=== PATIENT | male | born 1985 | race Caucasian/White ===

== ENCOUNTER 2022-09-24 08:48 | Emergency (ER) | payer OTHER, SELFPAY ==
[2022-09-24 08:49] VITALS: BP 150/94; PULSE 88; RESP 16; TEMP 36.6; O2SAT 100; BMI 22.5
[2022-09-24 08:57] VITALS: BP 150/100; PULSE 66; RESP 20; O2SAT 99
--- NOTE | 2022-09-24 09:29 | EKG12_ITS ---
Test Reason : HTN Blood Pressure : / mmHG Vent. Rate : 066 BPM Atrial Rate : 066 BPM P-R Int : 150 ms QRS Dur : 084 ms QT Int : 374 ms P-R-T Axes : 080 081 064 degrees QTc Int : 392 ms Normal sinus rhythm ST elevation, consider early repolarization Borderline ECG Confirmed by GINA HOUSTON, MATTEO ([id number]), editorial manager FITZ ROSENTHAL ([id number]) on 09/30/2022 9:24:55 A M Referred By: Confirmed By:ROCK FUENTES MD
--- NOTE | 2022-09-24 09:30 | EDS_ITS ---
HPI History of Present Illness Chief Complaint: Hypertension Informant: patient Narrative Narrative: 37-year-old male presenting to the emergency room with hypertension. Patient states that he has noticed over the past year plus he has episodes of throbbing headache and neck pain. During these periods he knows that his blood pressure is elevated. Sometimes his blood pressure is elevated into the greater than 200 systolic range measured by a wrist cuff.. 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 He notes no change in exercise tolerance. He states that he has not experienced any chest pain. He states occasionally he will feel a fluttering in his chest but it is only lasting seconds. His PCP has retired and he has an appointment the end of the month. However his symptoms have progressively worsened and so he decided to seek care today. PFSH PFSH Medical History no medical history Allergy/AdvReac Type Severity Reaction Status Date / Time No Known Allergies Allergy Verified 09/24/22 08:51 Social History (Updated 09/24/22 @ 09:[address] Isaac Stevenson, DO) current gender identity: male Smoking Status: Never smoker ROS ROS ED Constitutional Constitutional ED: Denies chills or weight loss Eyes Eyes: Denies change in vision or diplopia ENT ENT ED: Denies ear pain, rhinorrhea or sore throat Cardiovascular Cardiovascular: Reports palpitations; Denies chest pain, orthopnea or racing heartbeat Respiratory/Chest Respiratory/Chest: Denies cough, dyspnea or orthopnea Gastrointestinal Gastrointestinal: Denies abdominal pain, diarrhea, nausea or vomiting Genitourinary Genitourinary ED: Denies dysuria, hematuria or urinary frequency Musculoskeletal Musculoskeletal: Reports neck pain; Denies arthralgias or myalgias Integumentary Denies abscess or rash Neurologic Neurologic: Reports headache(s); Denies weakness Psychiatric Psychiatric: Denies anxiety, depression, suicidal ideation or suicidal thoughts Endocrine Endocrinology: Denies polydipsia, polyphagia or polyuria Allergic/Immunologic Allergic/Immunologic ED: Denies mouth swelling, tongue swelling or urticaria EXAM Physical Exam Const Vital Signs: 09/24/22 08:49 09/24/22 08:55 09/24/22 08:57 Temperature 97.8 F Temperature Source Temporal Pulse Rate 88 66 Respiratory Rate 16 20 H Respiratory Effort Normal Respiratory Pattern Normal Blood Pressure 150/94 H 150/100 H Blood Pressure Mean 112 116 Pulse Ox 100 99 Oxygen Delivery Method Room Air Room Air 09/24/22 11:00 Temperature Temperature Source Pulse Rate 72 Respiratory Rate Respiratory Effort Respiratory Pattern Blood Pressure 130/86 H Blood Pressure Mean 100 Pulse Ox Oxygen Delivery Method Positive well nourished and well developed General Appearance ED: well developed HEENT Reports normocephalic, head/scalp atraumatic and moist mucous membranes Eyes PERRL and EOMs intact bilaterally Neck no lymphadenopathy, supple and no JVD Resp normal respiratory effort and clear to auscultation bilaterally Cardio regular rate, regular rhythm and no murmurs GI normal to inspection, nondistended, normoactive bowel sounds and non-tender Palpation: soft Back/Spine no CVA tenderness and normal ROM Extremity normal to inspection General Extremety ED: Negative for edema General Extremity: Negative for edema Neuro oriented x3 and CN's II-XII intact bilaterally Sensorium / Orientation: alert Motor Exam: strength 5/5 throughout Psych mental status grossly normal Mood & Affect: Negative for depressed or tearful Skin no rashes or lesions noted and no wounds MDM MDM MDM Narrative Medical decision making narrative: My interpretation of the chest x-ray is normal mediastinal silhouette. Basic blood work is negative. EKG is normal. Patient is a 37-year-old male with intermittent hypertension above 200. We will start him on low-dose amlodipine. I would recommend that he continue to monitor his blood pressure and take it to his doctor's office on the when he has a follow-up appointment. The patient and his are in agreement with this plan. Lab Data Attestation: I reviewed the patient's lab results. Labs: Laboratory Results - last 24 hr 09/24/22 09/24/22 10:00 10:00 WBC 4.7 RBC 4.96 Hgb 15.4 Hct 44.0 MCV 88.7 MCH 31.0 MCHC 35.0 RDW Std Deviation 40.5 RDW Coeff of Gil 12.5 Plt Count 254 MPV 9.6 Immature Gran % (Auto) 0.200 Neut % (Auto) 55.2 Lymph % (Auto) 30.4 [place] % (Auto) 10.6 H Eos % (Auto) 2.3 Baso % (Auto) 1.3 H Absolute Neuts (auto) 2.6 Absolute Lymphs (auto) 1.43 Nucleated RBC % 0 Sodium 140 Potassium 4.3 Chloride 107 Carbon Dioxide 29.0 Anion Gap 4 L BUN 12 Creatinine 0.95 Estim Creat Clear Calc 122.95 Est GFR (MDRD) Af Amer 115 Est GFR (MDRD) Non-Af 95 BUN/Creatinine Ratio 12.7 Glucose 88 Calcium 9.3 Total Bilirubin 0.90 AST 15 ALT 24 Alkaline Phosphatase 96 Total Protein 7.0 Albumin 4.1 Globulin 2.9 Albumin/Globulin Ratio 1.4 Radiography Diagnostic Testing: Clinical Impression(s) from Imaging Studies Chest X-Ray 09/24/22 10:15 IMPRESSION: Normal x-ray examination of the chest. Electronically Signed: Js Hendricks MD at 10:35 EST , EKG Initial EKG: Attestation: I personally reviewed and interpreted this EKG as follows: Comments: Normal sinus rhythm with a ventricular rate of 66 bpm. No concerning features of ACS noted. Discharge Plan Triage Chief Complaint: Hypertension ED Provider: Isaac Stevenson Dx/Rx/DC Orders Primary Care Provider: Care Physician,No Primary Referrals: Care Physician,No Primary [Primary Care Provider] -
--- NOTE | 2022-09-24 09:40 | NURSING ---
NO OLD EKGS
[2022-09-24 10:06] LABS: Absolute Lymphocyte Count 1.43 X10^3/uL (0.83-4.51); Absolute Neutrophil Count 2.6 X10^3/uL (2.0-7.7); Basophil# 0.06 X10^3/uL; Basophil% 1.3 % (0-1); Eosinophil# 0.11 X10^3/uL; Eosinophils% 2.3 % (0-5); Hemoglobin 15.4 g/dL (13.0-16.5); Lymphocyte # 1.43 X10^3/ul (0.83-4.51); Lymphocyte % 30.4 % (19-41); Mean Corpuscular Volume 88.7 fL (80-94); Mean Platelet Vol. 9.6 fl (6.2-12.0); Monocyte% 10.6 % (0-10); NRBC Flagged by Analyzer 0 % (0-5); Neutrophil % 55.2 % (47-70); Platelet Count 254 K/mm3 (150-450); RBC Distribution Width CV 12.5 % (11.6-14.6); RBC Distribution Width SD 40.5 fl (35.1-43.9); Red Blood Count 4.96 M/mm3 (4.6-6.2); White Blood Count 4.7 K/mm3 (4.4-11.0)
--- NOTE | 2022-09-24 10:15 | RAD_ITS ---
STUDY: X-RAY CHEST REASON FOR EXAM: Male, 37 years old. Hypertension TECHNIQUE: Single AP portable view of the chest. COMPARISON: None. FINDINGS: EKG electrodes are seen. The lungs are clear and expanded. There is no demonstrated pleural abnormality. Normal size heart. Normal mediastinum and kenji. Normal visualized pulmonary arteries. Normal visualized aortic arch and descending thoracic aorta. Normal visualized thoracic spine. Normal visualized ribs, clavicles, and shoulders. There is no demonstrated abnormality of the visualized soft tissue structures of the upper abdomen. RAD/Chest 1 View (Portable) IMPRESSION: Normal x-ray examination of the chest. Electronically Signed: Js Hendricks MD at 10:35 EST ,
[2022-09-24 10:22] LABS: ALB/GLOB Ratio 1.4 RATIO (0.9-2.4); AST(SGOT) 15 U/L (15-37); Alanine Aminotransfer ALT/SGPT 24 U/L (16-61); Albumin, Serum 4.1 g/dL (3.2-5.0); Alkaline Phosphatase 96 U/L (45-117); Anion Gap 4 (5-15); BUN 12 mg/dL (7-18); BUN/Creat Ratio 12.7 RATIO (10-20); Calcium,Total 9.3 mg/dL (8.5-10.1); Chloride 107 mmol/L (98-107); Creatinine, Serum 0.95 mg/dL (0.70-1.30); EST Glomerular Filtration Rate 95 mL/min (>60); Est Glom Filt Rate - Afr Amer 115 mL/min (>60); Estimated Creatinine Clearance 122.95 ml/min; Globulin 2.9 g/dL (2.2-4.2); Glucose 88 mg/dL (74-106); Potassium 4.3 mmol/L (3.5-5.1); Sodium Level 140 mmol/L (136-145)
[2022-09-24 11:00] VITALS: BP 130/86; PULSE 72
== END 2022-09-24 11:23 | disposition home or self-care (01) ==
PROVIDERS: Emergency Provider Emergency Medicine; Visit Provider Emergency Medicine
DX: I10 Essential (primary) hypertension (principal); R51.9 Headache, unspecified; R00.2 Palpitations; M54.2 Cervicalgia
CPT/HCPCS: 71045; 80053; 85025; 93005; 99285; A4216

== ENCOUNTER 2024-04-13 13:06 | Outpatient (RCR) | payer OTHER, SELFPAY ==
[2024-04-13 13:11] VITALS: BP 103/67; PULSE 65; RESP 16; BMI 22.6
--- NOTE | 2024-04-13 14:33 | PCM.WC.HP ---
History of Present Illness Date of Service: 04/13/24 Chief Complaint: Right abdomen wound after surgery History of Wound: 38 year old male presents with right lateral abdomen wound after surgery 03/15/24 for Pheochromocytoma at [facility] by Dr. Toure. He developed a seroma after surgery, ended admitted to [place] and then transferred to [facility] [place] where they took him back to surgery to evacuate the seroma. He was discharged home a week ago on Doxycycline antibiotics, with home health to help with his saline wet to dry dressings. Home health recommended he come into the wound center. Patient states that he does not have a follow up with the surgeon. History of high blood pressure and cardiac issues which were related to his Pheochromocytoma. He had been having elevated blood pressure episodes periodically for about 2 years. In January 2024, his symptoms worsened along with chest pain and heart arrhythmias. That was when the mass was an incidental finding on chest imaging. Today he denies fever, chills, nausea or vomiting. Progress of Wound: Right lateral abdomen wound on the incision that has non viable tissue in the base. Sutures are visible. There is tunneling at 2 o'clock. [facility] Medical History Pheochromocytoma of right adrenal gland Home Medications ?Medication ?Instructions ?Recorded ?Last Taken ?Type doxycycline hyclate 100 mg capsule 100 mg PO BID 04/13/24 Unknown History tramadol 50 mg tablet 50 mg PO Q6H PRN PRN pain 04/13/24 Unknown History Allergy/AdvReac Type Severity Reaction Status Date / Time No Known Allergies Allergy Verified 04/13/24 13:25 Social History Smoking Status: Never smoker ROS Constitutional Constitutional: Denies chills or fever(s) Eyes Eyes: Reports none ENT HEENT: Reports none Cardiovascular Cardiovascular: Denies chest pain or dyspnea Respiratory/Chest Respiratory/Chest: Reports none Gastrointestinal Gastrointestinal: Denies diarrhea, nausea or vomiting Genitourinary Genitourinary: Reports none Musculoskeletal Musculoskeletal: Denies extremity pain, joint pain or joint stiffness Integumentary Integumentary: Reports wounds Neurologic Neurologic: Reports none Psychiatric Psychiatric: Reports none Endocrine Endocrinology: Reports none Allergic/Immunologic Allergic/Immunologic: Reports none Vital Signs Vital Signs Vital Signs: 04/13/24 13:11 Pulse Rate 65 Respiratory Rate 16 Blood Pressure 103/67 Blood Pressure Mean 79 Blood Pressure Source Monitor Blood Pressure Position Sitting Blood Pressure Location Right Arm Oxygen Delivery Method Room Air Weight Weight: 175 lb 12.943 oz Body Mass Index (BMI) 22.6 Physical Exam Const alert, oriented x3, no apparent distress and average body habitus HEENT normocephalic Head and Scalp: atraumatic Eyes General Eye: normal appearance of both eyes Neck full ROM Lymph Lymphatic: no lymphedema noted Resp normal respiratory effort, normal air movement and clear to auscultation bilaterally Effort and Inspection: able to speak in complete sentences Cardio regular rate and regular rhythm GI normal to inspection, nondistended, normoactive bowel sounds and soft to palpation Back/Spine normal ROM Extremity normal to inspection, full ROM and normal capillary refill Skin Wound Narrative: Right lateral abdomen wound on the incision that has non viable tissue in the base. Two sutures are visible in the base of the ulcer. There is tunneling at 2 o'clock. Neuro oriented x3 Psych mental status grossly normal, thought process normal and cooperative Appearance: grossly normal Debridement Note Debridement Note No debridement was completed: No debridement was completed today Post-Debridement Measurements and Additional Note: Post-Debridement Measurements/Treatment - Nurse 1 - General Ulcer Assessment Start: 04/13/24 13:11 Freq: Status: Active Protocol: REHANA Activity Type Activity Date Activity User E-sign Co-sign Detail Recorded Client Recorded Date Recorded By Document 04/13/24 13:11 [facility] [id number] 04/13/24 13:22 [facility] 04/13/24 13:11 - Today's Visit Information Type of service Initial Visit Arrival Mode Ambulatory Transfer Assistance None Accompanied by Patient Identification Verified (Name & Yes ) Patient Requires Transmission-Based No Precautions Height and Weight Height 6 ft 2 in Weight 175 lb 12.943 oz Weight in Pounds 175.8 lbs Body Mass Index (BMI) 22.6 BMI Classification Normal BSA - [place] 2.06 Vital Signs Pulse Rate (60-100) 65 Pulse Location Monitor Respiratory Rate (12-18) 16 Respiratory rate source Observation Oxygen Delivery Method Room Air Blood Pressure (90/60-120/80) 103/67 Blood Pressure Mean 79 Source Monitor Position Sitting Blood Pressure Location Right Arm History Since Last Visit- (Skip if this is Patient's initial visit) Left Footwear Regular Shoe Right Footwear Regular Shoe Pain Scale: 0-10 Numeric Is Patient Pain Free? Yes Communication Assessment Preferred language [place] Scissors Sharpener Required No Able to Read Yes Able to Write Yes Communication Tools None Right Hearing Abillity Normal Left Hearing Abillity Normal Visual Assistive Devices None Culture/Roman Catholic/Door Fitter Cultural/Roman Catholic Needs that may affect No Treatment Plan Teaching: Wound Center Dressing Your Wound -Person Taught Patient, Significant Other -Teaching Method Discussion -Response to teaching Verbalize understanding *Welcome to the Wound Center -Person Taught Patient, Significant Other -Teaching Method Discussion -Response to teaching Verbalize understanding *Wound/Skin Impairment -Person Taught Patient, Significant Other -Teaching Method Discussion -Response to teaching Verbalize understanding *Debridement -Person Taught Patient, Significant Other -Teaching Method Discussion -Response to teaching Verbalize understanding Welcome to the Wound Care Center English RANGEL - Nurse 1 - General Ulcer Measurement Start: 04/13/24 13:11 Freq: Status: Active Protocol: Activity Type Activity Date Activity User E-sign Co-sign Detail Recorded Client Recorded Date Recorded By Document 04/13/24 13:11 [facility] [id number] 04/13/24 13:22 [facility] 04/13/24 13:11 Wound Center Nurse 1 #1- R ABDOMEN -Combined with other wound No -Current Size (cm) - Length 1.7 -Current Size (cm) - Width 6.5 -Current Size (cm) - Depth 2.5 -Total Square Cm 11.05 -Date of Last Picture (Recall this 04/13/24 field) -Photo Taken Yes -Tunneling No -Undermining/Tunneling No -Undermining/Tunneling Starts (O'clock 2 ) -Undermining/Tunneling Ends (O'clock) 10 -Maximum Distance (cm) 9.3 -Circular Undermining No -Exudate Amt Large -Exudate Type Serosanguineous -Wound Margin Distinct, Outline Attached -Granulation Amt Small (1-33%) -Granulation Quality Red -Slough/Fibrin Yes -Necrosis Amt Large (67-100%) -Necrotic Tissue Type Adherent Slough -Texture (Luzma-wound Skin Appearance) Assessed, Scarring -Moisture (Luzma-wound Skin Appearance) Assessed -Color (Luzma-wound Skin Appearance) Assessed -Temperature (Luzma-wound Skin No Abnormality Appearance) (Pt Warm) -Tenderness on Palpation (Luzma-wound No Skin Appearance) -Ulcer Cleansing Soap and Water -Foul Odor after Cleansing No -Anesthetic Used 4% Lidocaine Solution - Nurse 2 - General Ulcer CM Notes Start: 04/13/24 13:11 Freq: Status: Active Protocol: Activity Type Activity Date Activity User E-sign Co-sign Detail Recorded Client Recorded Date Recorded By Document 04/13/24 13:40 GM 04/13/24 13:54 GM 04/13/24 13:40 Wound Center Nurse 2 -Time 13:41 -Correct Patient Yes -Correct Side, Site, Position Yes -Tunneling No -Undermining/Tunneling No -Circular Undermining No -Wound/Ulcer Outcome Not Healed -Ulcer Cleansing Rinsed/ Irrigated with Saline -Foul Odor after Cleansing No -Bioengineered Tissue No -Bleeding Controlled with Pressure -Treatment Response Procedure Tolerated Well -Wound Comment(s) WOUND MEASUREMENT 1. 6X6.5X2.6 Pain Scale: 0-10 Numeric Is Patient Pain Free? Yes - Nurse 3 - General Ulcer D/C NN Start: 04/13/24 13:11 Freq: Status: Active Protocol: Activity Type Activity Date Activity User E-sign Co-sign Detail Recorded Client Recorded Date Recorded By Document 04/13/24 14:08 [facility] [id number] 04/13/24 14:09 [facility] 04/13/24 14:08 Wound Care Center Nurse 3 #1- R ABDOMEN -Ulcer Cleansing Rinsed/ Irrigated with Saline -Foul Odor after Cleansing No -Primary Dressing Applied Hysept ($) -Other Dressing ABD -Primary Dressing Covered/Secured with Secured with Tape Treatment Response Procedure Tolerated Well Pain Scale: 0-10 Numeric Is Patient Pain Free? Yes - Visit Discharge Discharge Condition Stable Ambulatory Status Ambulatory Transportation Private Auto Accompanied by Facility Type Home Health Charges/Coding Visit Charges Office Visits / Consults: [id number] OV L4 Est 30min Assessment/Plan Assessment/Plan (1) Non-healing surgical wound: CODE(S): T81.89XA - Other complications of procedures, not elsewhere classified, initial encounter (2) Pheochromocytoma of right adrenal gland: CODE(S): D35.01 - Benign neoplasm of right adrenal gland PLAN: Plan Patient evaluated at the wound healing center. No debridement done today with the sutures visible in the base of the wound. Will do conservative treatment. Wound care - Dakin's 0.25% moistened gauze covered with ABD daily and prn. May wash the area with soap and water daily. He has home health to assist with the dressing changes and his is an RN who also is able to assist him with his dressing changes. He currently does not have a follow up with his surgeon. Instructed him that he will need to schedule a follow up with his surgeon, so that he can continue to evaluate the wound. Will attempt to obtain some of his records from [facility]. He is to continue the antibiotics that he was prescribed upon discharge. Follow up one week.
== END 2024-04-15 23:59 | disposition home or self-care (01) ==
LOC: WC 13:06
PROVIDERS: PCP Internal Medicine; Referring Provider Internal Medicine; Visit Provider Nurse Practitioner Family
DX: T81.89XA Other complications of procedures, not elsewhere classified, initial encounter (principal); D35.01 Benign neoplasm of right adrenal gland
CPT/HCPCS: 99213; G0463

== ENCOUNTER 2024-05-11 13:45 | Outpatient (RCR) | payer OTHER, SELFPAY ==
[2024-04-16 02:42] VITALS: BP 103/67; PULSE 65; RESP 16; BMI 22.6
[2024-04-20 14:49] VITALS: BP 103/64; PULSE 70; RESP 18; TEMP 36.6; BMI 22.6
--- NOTE | 2024-04-20 15:56 | PCM.WC.PN ---
History of Present Illness Date of Service: 04/20/24 Chief Complaint: Right abdomen wound after surgery History of Wound: 38 year old male presents with right lateral abdomen wound after surgery 03/15/24 for Pheochromocytoma at [facility] by Dr. Toure. He developed a seroma after surgery, ended admitted to [place] and then transferred to [facility] where they took him back to surgery to evacuate the seroma. He was discharged home a week ago on Doxycycline antibiotics, with home health to help with his saline wet to dry dressings. Home health recommended he come into the wound center. Patient states that he does not have a follow up with the surgeon. History of high blood pressure and cardiac issues which were related to his Pheochromocytoma. He had been having elevated blood pressure episodes periodically for about 2 years. In January 2024, his symptoms worsened along with chest pain and heart arrhythmias. That was when the mass was an incidental finding on chest imaging. Today he denies fever, chills, nausea or vomiting. Progress of Wound: Patient is doing well. Right lateral abdomen wound on the incision has non viable tissue in the base. It has slightly improved compared to last week. Sutures are still visible. There is tunneling at 2-3 o'clock, which has decreased. I did speak to Dr. Cardenas a surgeon from [facility] who works with Dr. Toure, to make sure that we are all on the same page for wound care. He states that they would like a wound VAC placed to help with the wound healing process. Objective Data Objective Data Vital Signs: Vital Signs Temp Pulse Resp BP O2 Del Method 98 F 70 18 103/64 Room Air 04/20/24 14:49 04/20/24 14:49 04/20/24 14:49 04/20/24 14:49 04/20/24 14:49 Oxygen Delivery Method Room Air Weight: 175 lb 12.943 oz Body Mass Index (BMI) 22.6 Charges/Coding Procedures Integumentary 111xxx-113xx: 15106 Virginie subq tissue 20 sq cm/< Debridement Note Debridement Note Wound debrided: lateral abdomen wound Laterality: Right Wound Grade/Stage: Grade 3 Type of Debridement: Excisional debridement Anesthesia Used: 5% Lidocaine Gel Depth: Down to and including healthy tissue, in the subcutaneous layer and to muscle Percentage of wound debrided: 100 Instrument Used: 7mm curette Tissue Removed: Non viable tissue and slough Severity: Fat Layer Exposed Amount of bleeding with debridement: Mild Bleeding Controlled with: Compression and gauze Patient tolerated procedure: Patient tolerated procedure well Debridement Free Text: Sutures in the base of the wound are still intact and not touched Post-Debridement Measurements and Additional Note: Post-Debridement Measurements/Treatment - Nurse 1 - General Ulcer Assessment Start: 04/20/24 14:49 Freq: Status: Active Protocol: REHANA Activity Type Activity Date Activity User E-sign Co-sign Detail Recorded Client Recorded Date Recorded By Document 04/20/24 14:49 [place] [email or web address] 04/20/24 14:57 WI 04/20/24 14:49 - Today's Visit Information Type of service Follow-up Visit (Physician/HOUSEKEEPING DIRECTOR ) Arrival Mode Ambulatory Patient Identification Verified (Name & Yes ) Patient Requires Transmission-Based No Precautions Height and Weight Body Mass Index (BMI) 22.6 BMI Classification Normal Vital Signs Temperature (97.8 F-99.1 F) 98 F Temperature Source Temporal Pulse Rate (60-100) 70 Pulse Location Monitor Respiratory Rate (12-18) 18 Respiratory rate source Observation Oxygen Delivery Method Room Air Blood Pressure (90/60-120/80) 103/64 Blood Pressure Mean (mm Hg) 77 Source Monitor Position Sitting Blood Pressure Location Left Arm History Since Last Visit- (Skip if this is Patient's initial visit) Has dressing in place as prescribed Yes Has compression in place as prescribed Yes Has offloadiing in place as prescribed N/A Left Footwear Regular Shoe Right Footwear Regular Shoe Pain Scale: 0-10 Numeric Is Patient Pain Free? Yes Yesica Nurse 1 - General Ulcer Measurement Start: 04/20/24 14:49 Freq: Status: Active Protocol: Activity Type Activity Date Activity User E-sign Co-sign Detail Recorded Client Recorded Date Recorded By Document 04/20/24 14:49 WI [email or web address] 04/20/24 14:57 WI 04/20/24 14:49 Wound Center Nurse 1 #1- R ABDOMEN -Current Size (cm) - Length 1.0 -Current Size (cm) - Width 6.8 -Current Size (cm) - Depth 0.3 -Total Square Cm 6.80 -Photo Taken No -Tunneling Yes -Tunneling Position (O'clock) 5 -Tunneling Distance (cm) 7.0 -Undermining/Tunneling No -Circular Undermining No -Exudate Amt Medium -Exudate Type Serosanguineous -Wound Margin Thickened & Rolled Under -Granulation Amt Large (67-100%) -Granulation Quality Pale,[place] -Necrosis Amt Medium (34-66%) -Texture (Luzma-wound Skin Appearance) Assessed -Moisture (Luzma-wound Skin Appearance) Assessed -Color (Luzma-wound Skin Appearance) Assessed -Temperature (Luzma-wound Skin No Abnormality Appearance) (Pt Warm) -Tenderness on Palpation (Luzma-wound No Skin Appearance) -Ulcer Cleansing Soap and Water -Foul Odor after Cleansing No -Anesthetic Used 4% Lidocaine Solution Lower Limb Edema Present NA - Nurse 2 - General Ulcer CM Notes Start: 04/20/24 14:49 Freq: Status: Active Protocol: Activity Type Activity Date Activity User E-sign Co-sign Detail Recorded Client Recorded Date Recorded By Document 04/20/24 15:08 [facility] 04/20/24 15:14 04/20/24 15:08 Wound Center Nurse 2 #1- R ABDOMEN -Time 15:08 -Correct Patient Yes -Correct Side, Site, Position Yes -Correct Procedure Yes -Procedure Performed Yes -Type of Procedure Debridement -Clinical Debridement Subcutaneous -Tissue Removed Muscle -Post Debridement (cm) - Length 1.8 -Post Debridement (cm) - Width 6.0 -Post Debridement (cm) - Depth 1.4 -Total Square (Post) (cm) 10.80 -Area of Debridement (cm) - Length 1.8 -Area of Debridement (cm) - Width 6.0 -Total Square (Area) (cm) 10.80 -Tunneling Yes -Tunneling Position (O'clock) 3 -Tunneling Distance (cm) 7.7 -Wound/Ulcer Outcome Not Healed -Ulcer Cleansing Rinsed/ Irrigated with Saline -Foul Odor after Cleansing No -Bioengineered Tissue No -Bleeding Controlled with Pressure -Treatment Response Procedure Tolerated Well -Debridement - Muscle / Fascia, 1st Yes 20sq cm Pain Scale: 0-10 Numeric Is Patient Pain Free? Yes - Nurse 3 - General Ulcer D/C NN Start: 04/20/24 14:49 Freq: Status: Active Protocol: Activity Type Activity Date Activity User E-sign Co-sign Detail Recorded Client Recorded Date Recorded By Document 04/20/24 15:32 [place] [email or web address] 04/20/24 15:33 [place] 04/20/24 15:32 Wound Care Center Nurse 3 #1- R ABDOMEN -Other Dressing dakins, abd -Primary Dressing Covered/Secured with Dry Gauze, Secured with Tape Pain Scale: 0-10 Numeric Is Patient Pain Free? Yes Assessment/Plan Assessment/Plan (1) Non-healing surgical wound: CODE(S): T81.89XA - Other complications of procedures, not elsewhere classified, initial encounter (2) Pheochromocytoma of right adrenal gland: CODE(S): D35.01 - Benign neoplasm of right adrenal gland PLAN: Plan Patient evaluated at the wound healing center. Sutures are still intact and visible in base of wound. Did not touch the sutures. Wound care - Dakin's 0.25% moistened gauze covered with ABD daily and prn. May wash the area with soap and water daily. After speaking with Dr. Cardenas ([phone]), associate of Dr. Toure, we will start a wound VAC at 150mmHg. Coil black foam (keep foam intact) into tunnel and wound three times per week. Wash wound with soap and water at the time of the dressing change. Do not get wound vac dressing wet, but before dressing changes, may remove wound VAC and shower. He has home health to assist with the dressing changes and his is an RN who also is able to assist him with his dressing changes. He currently does not have a follow up with his surgeon. Instructed him that he will need to schedule a follow up with his surgeon, so that he can continue to evaluate the wound. He is to continue the antibiotics that he was prescribed upon discharge. Follow up one week.
[2024-04-27 14:15] VITALS: BP 104/62; PULSE 76; RESP 16; TEMP 37.1; BMI 22.6
--- NOTE | 2024-04-27 16:56 | PCM.WC.PN ---
History of Present Illness Date of Service: 04/27/24 Chief Complaint: Right abdomen wound after surgery History of Wound: 38 year old male presents with right lateral abdomen wound after surgery 03/15/24 for Pheochromocytoma at [facility] by Dr. Toure. He developed a seroma after surgery, ended admitted to [place] and then transferred to [facility] where they took him back to surgery to evacuate the seroma. He was discharged home a week ago on Doxycycline antibiotics, with home health to help with his saline wet to dry dressings. Home health recommended he come into the wound center. Patient states that he does not have a follow up with the surgeon. History of high blood pressure and cardiac issues which were related to his Pheochromocytoma. He had been having elevated blood pressure episodes periodically for about 2 years. In January 2024, his symptoms worsened along with chest pain and heart arrhythmias. That was when the mass was an incidental finding on chest imaging. Today he denies fever, chills, nausea or vomiting. Progress of Wound: Patient is doing well. Right lateral abdomen non healing ulcer on the lateral aspect of his incision. There is non viable tissue in the base, which is stable. Sutures are still visible. The tunneling at 2-3 o'clock is smaller. Patient is tolerating the wound VAC. Objective Data Objective Data Vital Signs: Vital Signs Temp Pulse Resp BP O2 Del Method 98.7 F 76 16 104/62 Room Air 04/27/24 14:15 04/27/24 14:15 04/27/24 14:15 04/27/24 14:15 04/27/24 14:15 Oxygen Delivery Method Room Air Weight: 175 lb 12.943 oz Body Mass Index (BMI) 22.6 Charges/Coding Procedures Integumentary 111xxx-113xx: 29711 Virginie subq tissue 20 sq cm/< Debridement Note Debridement Note Wound debrided: lateral abdomen ulcer Laterality: Right Wound Grade/Stage: Grade 3 Type of Debridement: Excisional debridement Anesthesia Used: 5% Lidocaine Gel Depth: Down to and including healthy tissue, in the subcutaneous layer and to muscle Percentage of wound debrided: 100 Instrument Used: 7mm curette Tissue Removed: Non viable tissue and slough Severity: Fat Layer Exposed Amount of bleeding with debridement: Mild Bleeding Controlled with: Compression and gauze Patient tolerated procedure: Patient tolerated procedure well Debridement Free Text: Sutures in the base of ulcer are still intact and not touched. Continues to have non viable tissue in base of ulcer. Post-Debridement Measurements and Additional Note: Post-Debridement Measurements/Treatment WC - Nurse 1 - General Ulcer Assessment Start: 04/20/24 14:49 Freq: Status: Active Protocol: REHANA Activity Type Activity Date Activity User E-sign Co-sign Detail Recorded Client Recorded Date Recorded By Document 04/20/24 14:49 MT [email or web address] 04/20/24 14:57 MT Document 04/27/24 14:15 KW wound center 04/27/24 14:23 KW 04/20/24 04/27/24 14:49 14:15 WC - Today's Visit Information Type of service Follow-up Visit Follow-up Visit (Physician/APPLICATION PROJECT LEADER (Physician/APPLICATION PROJECT LEADER ) ) Arrival Mode Ambulatory Ambulatory Patient Identification Verified (Name & Yes Yes ) Patient Requires Transmission-Based No Precautions Height and Weight Body Mass Index (BMI) 22.6 22.6 BMI Classification Normal Normal Vital Signs Temperature (97.8 F-99.1 F) 98 F 98.7 F Temperature Source Temporal Temporal Pulse Rate (60-100) 70 76 Pulse Location Monitor Monitor Respiratory Rate (12-18) 18 16 Respiratory rate source Observation Observation Oxygen Delivery Method Room Air Room Air Blood Pressure (90/60-120/80) 103/64 104/62 Blood Pressure Mean (mm Hg) 77 76 Source Monitor Monitor Position Sitting Sitting Blood Pressure Location Left Arm Left Arm History Since Last Visit- (Skip if this is Patient's initial visit) Have you changed medications since your No last visit? Any new allergies or adverse reactions No Had a fall/change in ADL's that may No increase risk of falls Signs or symptoms of abuse and/or No neglect since last visit Have you been in the hospital since your No last visit? Has dressing in place as prescribed Yes Yes Has compression in place as prescribed Yes N/A Has offloadiing in place as prescribed N/A N/A Experienced any changes in pain level or No management Left Footwear Regular Shoe Regular Shoe Right Footwear Regular Shoe Regular Shoe Pain Scale: 0-10 Numeric Is Patient Pain Free? Yes Yes JUAN CARLOS Robert Nurse 1 - General Ulcer Measurement Start: 04/20/24 14:49 Freq: Status: Active Protocol: Activity Type Activity Date Activity User E-sign Co-sign Detail Recorded Client Recorded Date Recorded By Document 04/20/24 14:49 MT [email or web address] 04/20/24 14:57 MT Document 04/27/24 14:15 KW wound center 04/27/24 14:23 KW 04/20/24 04/27/24 14:49 14:15 Wound Center Nurse 1 #1- R ABDOMEN -Current Size (cm) - Length 1.0 1.4 -Current Size (cm) - Width 6.8 4.8 -Current Size (cm) - Depth 0.3 0.9 -Total Square Cm 6.80 6.72 -Date of Last Picture (Recall this 04/27/24 field) -Photo Taken No -Tunneling Yes -Tunneling Position (O'clock) 5 -Tunneling Distance (cm) 7.0 -Undermining/Tunneling No Yes -Undermining/Tunneling Starts (O'clock 10 ) -Undermining/Tunneling Ends (O'clock) 3 -Maximum Distance (cm) 3 -Circular Undermining No -Exudate Amt Medium Medium -Exudate Type Serosanguineous Serosanguineous -Wound Margin Thickened & Distinct, Rolled Under Outline Attached -Granulation Amt Large (67-100%) Small (1-33%) -Granulation Quality Pale,[place] -Necrosis Amt Medium (34-66%) Large (67-100%) -Necrotic Tissue Type Adherent Slough -Texture (Luzma-wound Skin Appearance) Assessed Assessed -Moisture (Luzma-wound Skin Appearance) Assessed Assessed -Color (Luzma-wound Skin Appearance) Assessed Assessed -Temperature (Luzma-wound Skin No Abnormality No Abnormality Appearance) (Pt Warm) (Pt Warm) -Tenderness on Palpation (Luzma-wound No No Skin Appearance) -Ulcer Cleansing Soap and Water Soap and Water -Foul Odor after Cleansing No No -Anesthetic Used 4% Lidocaine 4% Lidocaine Solution Solution Lower Limb Edema Present NA WC - Nurse 2 - General Ulcer CM Notes Start: 04/20/24 14:49 Freq: Status: Active Protocol: Activity Type Activity Date Activity User E-sign Co-sign Detail Recorded Client Recorded Date Recorded By Document 04/20/24 15:08 GM 04/20/24 15:14 GM Edit Result 04/20/24 15:08 GM (1) [id number] 04/21/24 07:25 GM Document 04/27/24 14:35 GM 04/27/24 14:37 GM (1) #1- R ABDOMEN - Clinical Debridement Muscle / Fascia => Subcutaneous - Tissue Removed Muscle => Subcutaneous - Debridement - Subq, 1st 20sq cm => Yes - Debridement - Muscle / Fascia, 1st Yes => 20sq cm 04/20/24 04/27/24 15:08 14:35 Wound Center Nurse 2 #1- R ABDOMEN -Time 15:08 14:36 -Correct Patient Yes Yes -Correct Side, Site, Position Yes Yes -Correct Procedure Yes Yes -Procedure Performed Yes Yes -Type of Procedure Debridement Debridement -Clinical Debridement Subcutaneous Subcutaneous -Tissue Removed Subcutaneous Subcutaneous -Post Debridement (cm) - Length 1.8 2.0 -Post Debridement (cm) - Width 6.0 1.5 -Post Debridement (cm) - Depth 1.4 1.5 -Total Square (Post) (cm) 10.80 3.00 -Area of Debridement (cm) - Length 1.8 2.0 -Area of Debridement (cm) - Width 6.0 1.5 -Total Square (Area) (cm) 10.80 3.00 -Tunneling Yes Yes -Tunneling Position (O'clock) 3 3 -Tunneling Distance (cm) 7.7 6.8 -Wound/Ulcer Outcome Not Healed Not Healed -Ulcer Cleansing Rinsed/ Wound Cleanser Irrigated with Saline -Foul Odor after Cleansing No No -Bioengineered Tissue No No -Bleeding Controlled with Pressure Pressure -Treatment Response Procedure Procedure Tolerated Well Tolerated Well -Debridement - Subq, 1st 20sq cm Yes Yes Pain Scale: 0-10 Numeric Is Patient Pain Free? Yes Yes - Nurse 3 - General Ulcer D/C NN Start: 04/20/24 14:49 Freq: Status: Active Protocol: Activity Type Activity Date Activity User E-sign Co-sign Detail Recorded Client Recorded Date Recorded By Document 04/20/24 15:32 MT [email or web address] 04/20/24 15:33 MT Document 04/27/24 14:45 KW k 04/27/24 14:46 KW 04/20/24 04/27/24 15:32 14:45 Wound Care Center Nurse 3 #1- R ABDOMEN -Foul Odor after Cleansing No -Negative Pressure Wound Therapy Continue -Setting (mmHg) 150 -Negative Pressure is Continuous -Other Dressing dakins, abd -Primary Dressing Covered/Secured with Dry Gauze, Secured with Tape -NPWT Application Charge NPWT </= 50 sq cm ($) Pain Scale: 0-10 Numeric Is Patient Pain Free? Yes Yes WC - Visit Discharge Discharge Condition Stable Ambulatory Status Ambulatory Transportation Private Auto Medication Reconcilliation completed & No provided to patient/care provider Clinical Summary of Care Provided Yes Assessment/Plan Assessment/Plan (1) Ulcer of abdomen wall with fat layer exposed: CODE(S): L98.492 - Non-pressure chronic ulcer of skin of other sites with fat layer exposed (2) Pheochromocytoma of right adrenal gland: CODE(S): D35.01 - Benign neoplasm of right adrenal gland PLAN: Plan Patient evaluated at the wound healing center. Sutures are still intact and visible in base of ulcer. Did not touch the sutures. Wound care - Wound VAC at 150 mmHg. Adaptic in base of ulcer over sutures. Coil black foam (keep foam intact) into tunnel and wound three times per week. Wash wound with soap and water at the time of the dressing change. Do not get wound vac dressing wet, but before dressing changes, may remove wound VAC and shower. Spoke with Dr. Cardenas ([phone]), associate of Dr. Toure on 04/20/24 and they would like a wound VAC in place. He has home health to assist with the dressing changes and his is an RN who also is able to assist him with his dressing changes. He currently does not have a follow up with his surgeon. Instructed him that he will need to schedule a follow up with his surgeon, so that he can continue to evaluate the wound. He is to completed the antibiotics that he was prescribed upon discharge. Follow up one week.
[2024-05-04 13:55] VITALS: BP 119/77; PULSE 96; RESP 16; TEMP 37.9; BMI 22.6
--- NOTE | 2024-05-04 17:15 | PN.PCM_ITS ---
History of Present Illness Date of Service: 05/04/24 Chief Complaint: Right abdomen wound after surgery History of Wound: 38 year old male presents with right lateral abdomen wound after surgery 03/15/24 for Pheochromocytoma at [facility] by Dr. Toure. He developed a seroma after surgery, ended admitted to [place] and then transferred to [facility] where they took him back to surgery to evacuate the seroma. He was discharged home a week ago on Doxycycline antibiotics, with home health to help with his saline wet to dry dressings. Home health recommended he come into the wound center. Patient states that he does not have a follow up with the surgeon. History of high blood pressure and cardiac issues which were related to his Pheochromocytoma. He had been having elevated blood pressure episodes periodically for about 2 years. In January 2024, his symptoms worsened along with chest pain and heart arrhythmias. That was when the mass was an incidental finding on chest imaging. Today he denies fever, chills, nausea or vomiting. Progress of Wound: Patient has a temperative of 102. He is having increased pain and discomfort. He states that he has been having issues with his wound VAC and he removed it last night and started Dakin's moistened gauze dressings. He states he just does not feel right. He still has not had any follow up in person with his [facility] surgeon. His ulcer is nice beefy pink. The non viable tissue in the base of the ulcer has decreased slightly. The tunnel at 3 o'clock is slightly smaller. His mara wound is excoriated from the drape and from where there was foam on his skin. Objective Data Objective Data Vital Signs: Vital Signs Temp Pulse Resp BP O2 Del Method 100.2 F H 96 16 119/77 Room Air 05/04/24 13:55 05/04/24 13:55 05/04/24 13:55 05/04/24 13:55 05/04/24 13:55 Oxygen Delivery Method Room Air Weight: 175 lb 12.943 oz Body Mass Index (BMI) 22.6 Charges/Coding Procedures Integumentary 111xxx-113xx: [id number] Virginie subq tissue 20 sq cm/< Debridement Note Debridement Note Wound debrided: lateral abdomen ulcer Laterality: Right Wound Grade/Stage: Grade 3 Type of Debridement: Excisional debridement Anesthesia Used: 5% Lidocaine Gel Depth: Down to and including healthy tissue, in the subcutaneous layer and to muscle Percentage of wound debrided: 100 Instrument Used: 5mm curette Tissue Removed: Non viable tissue and slough Severity: Fat Layer Exposed Amount of bleeding with debridement: Mild Bleeding Controlled with: Compression and gauze Patient tolerated procedure: Patient tolerated procedure well Debridement Free Text: Sutures in the base of ulcer are still intact and not touched. Continues to have non viable tissue in base of ulcer. Post-Debridement Measurements and Additional Note: Post-Debridement Measurements/Treatment - Nurse 1 - General Ulcer Assessment Start: 04/20/24 14:49 Freq: Status: Active Protocol: .LOWEXCristina Activity Type Activity Date Activity User E-sign Co-sign Detail Recorded Client Recorded Date Recorded By Document 04/20/24 14:49 MT [email or web address] 04/20/24 14:57 MT Document 04/27/24 14:15 KW wound center 04/27/24 14:23 KW Document 05/04/24 13:55 MT [id number] 05/04/24 14:00 MT 04/20/24 04/27/24 05/04/24 14:49 14:15 13:55 - Today's Visit Information Type of service Follow-up Visit Follow-up Visit Follow-up Visit (Physician/HIGHWAY CONSTRUCTION INSPECTOR (Physician/HIGHWAY CONSTRUCTION INSPECTOR (Physician/HIGHWAY CONSTRUCTION INSPECTOR ) ) ) Arrival Mode Ambulatory Ambulatory Ambulatory Transfer Assistance None Patient Identification Verified (Name & Yes Yes Yes ) Patient Requires Transmission-Based No No Precautions Height and Weight Body Mass Index (BMI) 22.6 22.6 22.6 BMI Classification Normal Normal Normal Vital Signs Temperature (97.8 F-99.1 F) 98 F 98.7 F 100.2 F H Temperature Source Temporal Temporal Temporal Pulse Rate (60-100) 70 76 96 Pulse Location Monitor Monitor Monitor Respiratory Rate (12-18) 18 16 16 Respiratory rate source Observation Observation Observation Oxygen Delivery Method Room Air Room Air Room Air Blood Pressure (90/60-120/80) 103/64 104/62 119/77 Blood Pressure Mean (mm Hg) 77 76 91 Source Monitor Monitor Monitor Position Sitting Sitting Sitting Blood Pressure Location Left Arm Left Arm Right Arm History Since Last Visit- (Skip if this is Patient's initial visit) Have you changed medications since your No No last visit? Any new allergies or adverse reactions No No Had a fall/change in ADL's that may No No increase risk of falls Signs or symptoms of abuse and/or No No neglect since last visit Have you been in the hospital since your No No last visit? Has dressing in place as prescribed Yes Yes No Has compression in place as prescribed Yes N/A Has offloadiing in place as prescribed N/A N/A Experienced any changes in pain level or No management Left Footwear Regular Shoe Regular Shoe Regular Shoe Right Footwear Regular Shoe Regular Shoe Regular Shoe Pain Scale: 0-10 Numeric Is Patient Pain Free? Yes Yes Yes WC - Nurse 1 - General Ulcer Measurement Start: 04/20/24 14:49 Freq: Status: Active Protocol: Activity Type Activity Date Activity User E-sign Co-sign Detail Recorded Client Recorded Date Recorded By Document 04/20/24 14:49 MT [email or web address] 04/20/24 14:57 MT Document 04/27/24 14:15 KW wound center 04/27/24 14:23 KW Document 05/04/24 13:55 MO [id number] 05/04/24 14:00 MT 04/20/24 04/27/24 05/04/24 14:49 14:15 13:55 Wound Center Nurse 1 #1- R ABDOMEN -Combined with other wound No -Current Size (cm) - Length 1.0 1.4 1.4 -Current Size (cm) - Width 6.8 4.8 5.5 -Current Size (cm) - Depth 0.3 0.9 2 -Total Square Cm 6.80 6.72 7.70 -Date of Last Picture (Recall this 04/27/24 05/04/24 field) -Photo Taken No Yes -Epithelialization Small 1-33% -Tunneling Yes Yes -Tunneling Position (O'clock) 5 3 -Tunneling Distance (cm) 7.0 3.9 -Undermining/Tunneling No Yes No -Undermining/Tunneling Starts (O'clock 10 ) -Undermining/Tunneling Ends (O'clock) 3 -Maximum Distance (cm) 3 -Circular Undermining No No -Exudate Amt Medium Medium Medium -Exudate Type Serosanguineous Serosanguineous Serosanguineous -Wound Margin Thickened & Distinct, Distinct, Rolled Under Outline Outline Attached Attached -Granulation Amt Large (67-100%) Small (1-33%) Medium (34-66%) -Granulation Quality Pale,Bromley Bromley Red -Slough/Fibrin Yes -Necrosis Amt Medium (34-66%) Large (67-100%) Medium (34-66%) -Necrotic Tissue Type Adherent Slough Adherent Slough -Texture (Mara-wound Skin Appearance) Assessed Assessed Assessed, Scarring -Moisture (Mara-wound Skin Appearance) Assessed Assessed Assessed -Color (Mara-wound Skin Appearance) Assessed Assessed Assessed, Erythema -Temperature (Mara-wound Skin No Abnormality No Abnormality No Abnormality Appearance) (Pt Warm) (Pt Warm) (Pt Warm) -Tenderness on Palpation (Mara-wound No No No Skin Appearance) -Ulcer Cleansing Soap and Water Soap and Water Soap and Water -Foul Odor after Cleansing No No Yes, Due to Product Use -Anesthetic Used 4% Lidocaine 4% Lidocaine 4% Lidocaine Solution Solution Solution Lower Limb Edema Present NA WC - Nurse 2 - General Ulcer CM Notes Start: 04/20/24 14:49 Freq: Status: Active Protocol: Activity Type Activity Date Activity User E-sign Co-sign Detail Recorded Client Recorded Date Recorded By Document 04/20/24 15:08 GM 04/20/24 15:14 GM Edit Result 04/20/24 15:08 GM (1) [id number] 04/21/24 07:25 GM Document 04/27/24 14:35 GM 04/27/24 14:37 GM Document 05/04/24 14:23 GM 05/04/24 14:28 GM (1) #1- R ABDOMEN - Clinical Debridement Muscle / Fascia => Subcutaneous - Tissue Removed Muscle => Subcutaneous - Debridement - Subq, 1st 20sq cm => Yes - Debridement - Muscle / Fascia, 1st Yes => 20sq cm 04/20/24 04/27/24 05/04/24 15:08 14:35 14:23 Wound Center Nurse 2 #1- R ABDOMEN -Time 15:08 14:36 14:23 -Correct Patient Yes Yes Yes -Correct Side, Site, Position Yes Yes Yes -Correct Procedure Yes Yes Yes -Procedure Performed Yes Yes Yes -Type of Procedure Debridement Debridement Debridement -Clinical Debridement Subcutaneous Subcutaneous Subcutaneous -Tissue Removed Subcutaneous Subcutaneous Subcutaneous -Post Debridement (cm) - Length 1.8 2.0 1.8 -Post Debridement (cm) - Width 6.0 1.5 5.0 -Post Debridement (cm) - Depth 1.4 1.5 1.6 -Total Square (Post) (cm) 10.80 3.00 9.00 -Area of Debridement (cm) - Length 1.8 2.0 1.8 -Area of Debridement (cm) - Width 6.0 1.5 5.0 -Total Square (Area) (cm) 10.80 3.00 9.00 -Tunneling Yes Yes No -Tunneling Position (O'clock) 3 3 3 -Tunneling Distance (cm) 7.7 6.8 7.3 -Undermining/Tunneling No -Circular Undermining No -Wound/Ulcer Outcome Not Healed Not Healed Not Healed -Ulcer Cleansing Rinsed/ Wound Cleanser Rinsed/ Irrigated with Irrigated with Saline Saline -Foul Odor after Cleansing No No No -Bioengineered Tissue No No -Bleeding Controlled with Pressure Pressure Pressure -Treatment Response Procedure Procedure Procedure Tolerated Well Tolerated Well Tolerated Well -Debridement - Subq, 1st 20sq cm Yes Yes Yes Pain Scale: 0-10 Numeric Is Patient Pain Free? Yes Yes Yes - Nurse 3 - General Ulcer D/C NN Start: 04/20/24 14:49 Freq: Status: Active Protocol: Activity Type Activity Date Activity User E-sign Co-sign Detail Recorded Client Recorded Date Recorded By Document 04/20/24 15:32 MT [email or web address] 04/20/24 15:33 MO Document 04/27/24 14:45 KW k 04/27/24 14:46 KW 04/20/24 04/27/24 15:32 14:45 Wound Care Center Nurse 3 #1- R ABDOMEN -Foul Odor after Cleansing No -Negative Pressure Wound Therapy Continue -Setting (mmHg) 150 -Negative Pressure is Continuous -Other Dressing dakins, abd -Primary Dressing Covered/Secured with Dry Gauze, Secured with Tape -NPWT Application Charge NPWT </= 50 sq cm ($) Pain Scale: 0-10 Numeric Is Patient Pain Free? Yes Yes - Visit Discharge Discharge Condition Stable Ambulatory Status Ambulatory Transportation Private Auto Medication Reconcilliation completed & No provided to patient/care provider Clinical Summary of Care Provided Yes Assessment/Plan Assessment/Plan (1) Ulcer of abdomen wall with fat layer exposed: CODE(S): L98.492 - Non-pressure chronic ulcer of skin of other sites with fat layer exposed (2) Pheochromocytoma of right adrenal gland: CODE(S): D35.01 - Benign neoplasm of right adrenal gland PLAN: Plan Patient evaluated at the wound healing center. Sutures are still intact and visible in base of ulcer. Did not touch the sutures. Wound care - Wound VAC holiday for one week to allow periwound to heal. When we restart the wound VAC, will NOT place Adaptic in base of ulcer. Will have him do daily Dakin's 0.25% moistened gauze dressing changes covered with ABD until next visit. A wound culture was obtained today.? He has Augmentin at home from before he was most recently admitted that he only took one dose. Will start him on the Augmentin until we get the wound culture results. We may need to change his antibiotic once the culture results are obtained. Counseled him to go to the ED if his symptoms worsen. Discussed signs and symptoms of worsening infection. Spoke with Dr. Cardenas ([phone]), associate of Dr. Toure on 04/20/24 and they would like a wound VAC in place. He has home health to assist with the dressing changes and his is an RN who also is able to assist him with his dressing changes. He currently does not have a follow up with his surgeon. He states he sends his surgeon pictures of his wound. Instructed him that he will need to schedule a follow up with his surgeon, so that he can continue to evaluate the wound. Follow up one week.
--- NOTE | 2024-05-09 09:09 | WC ---
PHOTO 05/04/2024 RIGHT ABD
[2024-05-11 14:02] VITALS: BP 101/63; PULSE 76; RESP 16; TEMP 36.8; BMI 22.6
--- NOTE | 2024-05-11 14:51 | PCM.WC.PN ---
History of Present Illness Date of Service: 05/11/24 Chief Complaint: Right abdomen wound after surgery History of Wound: 38 year old male presents with right lateral abdomen wound after surgery 03/15/24 for Pheochromocytoma at [facility] by Dr. Toure. He developed a seroma after surgery, ended admitted to [place] and then transferred to [facility] where they took him back to surgery to evacuate the seroma. He was discharged home a week ago on Doxycycline antibiotics, with home health to help with his saline wet to dry dressings. Home health recommended he come into the wound center. Patient states that he does not have a follow up with the surgeon. History of high blood pressure and cardiac issues which were related to his Pheochromocytoma. He had been having elevated blood pressure episodes periodically for about 2 years. In January 2024, his symptoms worsened along with chest pain and heart arrhythmias. That was when the mass was an incidental finding on chest imaging. Wound culture from 05/04/24 positive for Staphylococcus aureus which is sensitive to Augmentin. Today he denies fever, chills, nausea or vomiting. Progress of Wound: Patient has been doing well since he was started on Augmentin. He states that his fever and chills resolved almost immediately. His wound cultures from 05/04/24 were positive for MSSA. He will continue on the Augmentin. The over all size of his ulcer is smaller, the tunnel at 3 o'clock is stable. The base of the ulcer continues to have non viable fat necrotic tissue. Luzma wound is clear. He still has not had any follow up in person with his F surgeon. He states that he hs left messages about scheduling an appointment, but never receives calls back. Objective Data Objective Data Vital Signs: Vital Signs Temp Pulse Resp BP O2 Del Method 98.3 F 76 16 101/63 Room Air 05/11/24 14:02 05/11/24 14:02 05/11/24 14:02 05/11/24 14:02 05/11/24 14:02 Oxygen Delivery Method Room Air Weight: 175 lb 12.943 oz Body Mass Index (BMI) 22.6 Lab / Micro Data Micro: Microbiology 05/04/24 14:25 Tissue Ulcer - Abdominal Gram Stain - Final 05/04/24 14:25 Tissue Ulcer - Abdominal Wound Culture - Final Staphylococcus aureus 05/04/24 14:25 Tissue Ulcer - Abdominal Anaerobic Culture - Final No anaerobic bacteria isolated. Charges/Coding Procedures Integumentary [id number]: [id number] Virginie subq tissue 20 sq cm/< Debridement Note Debridement Note Wound debrided: lateral abdomen ulcer Laterality: Right Wound Grade/Stage: Grade 3 Type of Debridement: Excisional debridement Anesthesia Used: 5% Lidocaine Gel Depth: Down to and including healthy tissue and in the subcutaneous layer Percentage of wound debrided: 100 Instrument Used: 7mm curette and - (Sharp scissors and pick ups) Tissue Removed: Non viable tissue and slough and fat necrosis Severity: Fat Layer Exposed Amount of bleeding with debridement: Mild Bleeding Controlled with: Compression and gauze Patient tolerated procedure: Patient tolerated procedure well Debridement Free Text: Sutures in the base of ulcer are still intact and not touched. Removed the non viable tissue/fat necrosis under the sutures. No facia exposed. Post-Debridement Measurements and Additional Note: Post-Debridement Measurements/Treatment - Nurse 1 - General Ulcer Assessment Start: 04/20/24 14:49 Freq: Status: Active Protocol: REHANA Activity Type Activity Date Activity User E-sign Co-sign Detail Recorded Client Recorded Date Recorded By Document 04/20/24 14:49 MT [email or web address] 04/20/24 14:57 MT Document 04/27/24 14:15 KW wound center 04/27/24 14:23 KW Document 05/04/24 13:55 MT [id number] 05/04/24 14:00 MT Document 05/11/24 14:02 BMF [id number] 05/11/24 14:09 BMF 04/20/24 04/27/24 05/04/24 14:49 14:15 13:55 - Today's Visit Information Type of service Follow-up Visit Follow-up Visit Follow-up Visit (Physician/SUPERVISOR BRIAR SHOP (Physician/SUPERVISOR BRIAR SHOP (Physician/SUPERVISOR BRIAR SHOP ) ) ) Arrival Mode Ambulatory Ambulatory Ambulatory Transfer Assistance None Accompanied by Patient Identification Verified (Name & Yes Yes Yes ) Patient Requires Transmission-Based No No Precautions Height and Weight Body Mass Index (BMI) 22.6 22.6 22.6 BMI Classification Normal Normal Normal Vital Signs Temperature (97.8 F-99.1 F) 98 F 98.7 F 100.2 F H Temperature Source Temporal Temporal Temporal Pulse Rate (60-100) 70 76 96 Pulse Location Monitor Monitor Monitor Respiratory Rate (12-18) 18 16 16 Respiratory rate source Observation Observation Observation Oxygen Delivery Method Room Air Room Air Room Air Blood Pressure (90/60-120/80) 103/64 104/62 119/77 Blood Pressure Mean (mm Hg) 77 76 91 Source Monitor Monitor Monitor Position Sitting Sitting Sitting Blood Pressure Location Left Arm Left Arm Right Arm History Since Last Visit- (Skip if this is Patient's initial visit) Have you changed medications since your No No last visit? Any new allergies or adverse reactions No No Had a fall/change in ADL's that may No No increase risk of falls Signs or symptoms of abuse and/or No No neglect since last visit Have you been in the hospital since your No No last visit? Has dressing in place as prescribed Yes Yes No Has compression in place as prescribed Yes N/A Has offloadiing in place as prescribed N/A N/A Experienced any changes in pain level or No management Left Footwear Regular Shoe Regular Shoe Regular Shoe Right Footwear Regular Shoe Regular Shoe Regular Shoe Pain Scale: 0-10 Numeric Is Patient Pain Free? Yes Yes Yes 05/11/24 14:02 - Today's Visit Information Type of service Follow-up Visit (Physician/SUPERVISOR BRIAR SHOP ) Arrival Mode Ambulatory Transfer Assistance None Accompanied by Patient Identification Verified (Name & Yes ) Patient Requires Transmission-Based No Precautions Height and Weight Body Mass Index (BMI) 22.6 BMI Classification Normal Vital Signs Temperature (97.8 F-99.1 F) 98.3 F Temperature Source Temporal Pulse Rate (60-100) 76 Pulse Location Monitor Respiratory Rate (12-18) 16 Respiratory rate source Observation Oxygen Delivery Method Room Air Blood Pressure (90/60-120/80) 101/63 Blood Pressure Mean (mm Hg) 75 Source Monitor Position Sitting Blood Pressure Location History Since Last Visit- (Skip if this is Patient's initial visit) Have you changed medications since your No last visit? Any new allergies or adverse reactions No Had a fall/change in ADL's that may No increase risk of falls Signs or symptoms of abuse and/or No neglect since last visit Have you been in the hospital since your No last visit? Has dressing in place as prescribed Yes Has compression in place as prescribed N/A Has offloadiing in place as prescribed N/A Experienced any changes in pain level or No management Left Footwear Regular Shoe Right Footwear Regular Shoe Pain Scale: 0-10 Numeric Is Patient Pain Free? Yes WC - Nurse 1 - General Ulcer Measurement Start: 04/20/24 14:49 Freq: Status: Active Protocol: Activity Type Activity Date Activity User E-sign Co-sign Detail Recorded Client Recorded Date Recorded By Document 04/20/24 14:49 MT [email or web address] 04/20/24 14:57 MT Document 04/27/24 14:15 KW wound center 04/27/24 14:23 Document 05/04/24 13:55 CA [id number] 05/04/24 14:00 MT Document 05/11/24 14:02 BMF [id number] 05/11/24 14:09 BMF 04/20/24 04/27/24 05/04/24 14:49 14:15 13:55 Wound Center Nurse 1 #1- R ABDOMEN -Combined with other wound No -Current Size (cm) - Length 1.0 1.4 1.4 -Current Size (cm) - Width 6.8 4.8 5.5 -Current Size (cm) - Depth 0.3 0.9 2 -Total Square Cm 6.80 6.72 7.70 -Date of Last Picture (Recall this 04/27/24 05/04/24 field) -Photo Taken No Yes -Epithelialization Small 1-33% -Tunneling Yes Yes -Tunneling Position (O'clock) 5 3 -Tunneling Distance (cm) 7.0 3.9 -Undermining/Tunneling No Yes No -Undermining/Tunneling Starts (O'clock 10 ) -Undermining/Tunneling Ends (O'clock) 3 -Maximum Distance (cm) 3 -Circular Undermining No No -Exudate Amt Medium Medium Medium -Exudate Type Serosanguineous Serosanguineous Serosanguineous -Wound Margin Thickened & Distinct, Distinct, Rolled Under Outline Outline Attached Attached -Granulation Amt Large (67-100%) Small (1-33%) Medium (34-66%) -Granulation Quality Pale,Basco Basco Red -Slough/Fibrin Yes -Necrosis Amt Medium (34-66%) Large (67-100%) Medium (34-66%) -Necrotic Tissue Type Adherent Slough Adherent Slough -Texture (Luzma-wound Skin Appearance) Assessed Assessed Assessed, Scarring -Moisture (Luzma-wound Skin Appearance) Assessed Assessed Assessed -Color (Luzma-wound Skin Appearance) Assessed Assessed Assessed, Erythema -Temperature (Luzma-wound Skin No Abnormality No Abnormality No Abnormality Appearance) (Pt Warm) (Pt Warm) (Pt Warm) -Tenderness on Palpation (Luzma-wound No No No Skin Appearance) -Ulcer Cleansing Soap and Water Soap and Water Soap and Water -Foul Odor after Cleansing No No Yes, Due to Product Use -Anesthetic Used 4% Lidocaine 4% Lidocaine 4% Lidocaine Solution Solution Solution Lower Limb Edema Present NA 05/11/24 14:02 Wound Center Nurse 1 #1- R ABDOMEN -Combined with other wound No -Current Size (cm) - Length 1.5 -Current Size (cm) - Width 4 -Current Size (cm) - Depth 0.7 -Total Square Cm 6.0 -Date of Last Picture (Recall this 05/11/24 field) -Photo Taken Yes -Epithelialization None Present -Tunneling Yes -Tunneling Position (O'clock) 3 -Tunneling Distance (cm) 5.4 -Undermining/Tunneling No -Undermining/Tunneling Starts (O'clock ) -Undermining/Tunneling Ends (O'clock) -Maximum Distance (cm) -Circular Undermining No -Exudate Amt Medium -Exudate Type Serosanguineous -Wound Margin Distinct, Outline Attached -Granulation Amt Small (1-33%) -Granulation Quality Red -Slough/Fibrin Yes -Necrosis Amt Large (67-100%) -Necrotic Tissue Type Adherent Slough -Texture (Luzma-wound Skin Appearance) Assessed, Scarring -Moisture (Luzma-wound Skin Appearance) Assessed -Color (Luzma-wound Skin Appearance) Assessed -Temperature (Luzma-wound Skin No Abnormality Appearance) (Pt Warm) -Tenderness on Palpation (Luzma-wound No Skin Appearance) -Ulcer Cleansing Rinsed/ Irrigated with Saline -Foul Odor after Cleansing No -Anesthetic Used 4% Lidocaine Solution Lower Limb Edema Present WC - Nurse 2 - General Ulcer CM Notes Start: 04/20/24 14:49 Freq: Status: Active Protocol: Activity Type Activity Date Activity User E-sign Co-sign Detail Recorded Client Recorded Date Recorded By Document 04/20/24 15:08 GM wc 04/20/24 15:14 GM Edit Result 04/20/24 15:08 GM (1) [id number] 04/21/24 07:25 GM Document 04/27/24 14:35 GM 04/27/24 14:37 GM Document 05/04/24 14:23 GM 05/04/24 14:28 GM Document 05/11/24 14:25 GM 05/11/24 14:37 GM (1) #1- R ABDOMEN - Clinical Debridement Muscle / Fascia => Subcutaneous - Tissue Removed Muscle => Subcutaneous - Debridement - Subq, 1st 20sq cm => Yes - Debridement - Muscle / Fascia, 1st Yes => 20sq cm 04/20/24 04/27/24 05/04/24 15:08 14:35 14:23 Wound Center Nurse 2 #1- R ABDOMEN -Time 15:08 14:36 14:23 -Correct Patient Yes Yes Yes -Correct Side, Site, Position Yes Yes Yes -Correct Procedure Yes Yes Yes -Procedure Performed Yes Yes Yes -Type of Procedure Debridement Debridement Debridement -Clinical Debridement Subcutaneous Subcutaneous Subcutaneous -Tissue Removed Subcutaneous Subcutaneous Subcutaneous -Post Debridement (cm) - Length 1.8 2.0 1.8 -Post Debridement (cm) - Width 6.0 1.5 5.0 -Post Debridement (cm) - Depth 1.4 1.5 1.6 -Total Square (Post) (cm) 10.80 3.00 9.00 -Area of Debridement (cm) - Length 1.8 2.0 1.8 -Area of Debridement (cm) - Width 6.0 1.5 5.0 -Total Square (Area) (cm) 10.80 3.00 9.00 -Tunneling Yes Yes No -Tunneling Position (O'clock) 3 3 3 -Tunneling Distance (cm) 7.7 6.8 7.3 -Undermining/Tunneling No -Circular Undermining No -Wound/Ulcer Outcome Not Healed Not Healed Not Healed -Ulcer Cleansing Rinsed/ Wound Cleanser Rinsed/ Irrigated with Irrigated with Saline Saline -Foul Odor after Cleansing No No No -Bioengineered Tissue No No -Bleeding Controlled with Pressure Pressure Pressure -Treatment Response Procedure Procedure Procedure Tolerated Well Tolerated Well Tolerated Well -Debridement - Subq, 1st 20sq cm Yes Yes Yes Pain Scale: 0-10 Numeric Is Patient Pain Free? Yes Yes Yes 05/11/24 14:25 Wound Center Nurse 2 #1- R ABDOMEN -Time 14:29 -Correct Patient Yes -Correct Side, Site, Position Yes -Correct Procedure Yes -Procedure Performed Yes -Type of Procedure Debridement -Clinical Debridement Subcutaneous -Tissue Removed Subcutaneous -Post Debridement (cm) - Length 2.0 -Post Debridement (cm) - Width 4.0 -Post Debridement (cm) - Depth 1.6 -Total Square (Post) (cm) 8.00 -Area of Debridement (cm) - Length 2.0 -Area of Debridement (cm) - Width 4.0 -Total Square (Area) (cm) 8.00 -Tunneling Yes -Tunneling Position (O'clock) 3 -Tunneling Distance (cm) 7.5 -Undermining/Tunneling No -Circular Undermining No -Wound/Ulcer Outcome Not Healed -Ulcer Cleansing Rinsed/ Irrigated with Saline -Foul Odor after Cleansing No -Bioengineered Tissue No -Bleeding Controlled with Pressure -Treatment Response Procedure Tolerated Well -Debridement - Subq, 1st 20sq cm Yes Pain Scale: 0-10 Numeric Is Patient Pain Free? Yes - Nurse 3 - General Ulcer D/C NN Start: 04/20/24 14:49 Freq: Status: Active Protocol: Activity Type Activity Date Activity User E-sign Co-sign Detail Recorded Client Recorded Date Recorded By Document 04/20/24 15:32 MT [email or web address] 04/20/24 15:33 MT Document 04/27/24 14:45 KW k 04/27/24 14:46 KW Document 05/11/24 14:42 RB wound 05/11/24 14:43 RB 04/20/24 04/27/24 05/11/24 15:32 14:45 14:42 Wound Care Center Nurse 3 #1- R ABDOMEN -Ulcer Cleansing Rinsed/ Irrigated with Saline -Foul Odor after Cleansing No -Negative Pressure Wound Therapy Continue Continue -Setting (mmHg) 150 150 -Negative Pressure is Continuous Continuous -Other Dressing dakins, abd -Primary Dressing Covered/Secured with Dry Gauze, Secured with Tape -NPWT Application Charge NPWT </= 50 sq NPWT & cm ($) Debridement (nc ) Luzma-Wound Care Barrier Treatment Response Procedure Tolerated Well Pain Scale: 0-10 Numeric Is Patient Pain Free? Yes Yes Yes - Visit Discharge Discharge Condition Stable Stable Ambulatory Status Ambulatory Ambulatory Transportation Private Auto Private Auto Medication Reconcilliation completed & No No provided to patient/care provider Clinical Summary of Care Provided Yes Yes Assessment/Plan Assessment/Plan (1) Ulcer of abdomen wall with fat layer exposed: CODE(S): L98.492 - Non-pressure chronic ulcer of skin of other sites with fat layer exposed (2) Pheochromocytoma of right adrenal gland: CODE(S): D35.01 - Benign neoplasm of right adrenal gland PLAN: Plan Patient evaluated at the wound healing center. Sutures are still intact and visible in base of ulcer. Did not touch the sutures. Wound care - Wound VAC holiday for one week to allow periwound to heal. When we restart the wound VAC, will NOT place Adaptic in base of ulcer. Will have him do daily Dakin's 0.25% moistened gauze dressing changes covered with ABD until next visit. Wound culture from 05/04/24 positive for Staphylococcus aureus which is sensitive to Augmentin which he is currently on. Spoke with Dr. Cardenas ([phone]), associate of Dr. Toure on 04/20/24 and they would like a wound VAC in place. He has home health to assist with the dressing changes and his is an RN who also is able to assist him with his dressing changes. He currently does not have a follow up with his surgeon. He states he has called and left messages to schedule a follow up with his surgeon, no one returns his calls. Follow up two weeks, I am out of town next week.
--- NOTE | 2024-05-18 10:04 | WC ---
PHOTO ABD 05/11/2024
== END 2024-05-15 23:59 | disposition home or self-care (01) ==
LOC: WC 13:45
PROVIDERS: PCP Internal Medicine; Referring Provider Internal Medicine; Visit Provider Nurse Practitioner Family
DX: L98.492 Non-pressure chronic ulcer of skin of other sites with fat layer exposed (principal); E89.822 Postprocedural seroma of an endocrine system organ or structure following an endocrine system procedure; D35.01 Benign neoplasm of right adrenal gland
CPT/HCPCS: 11042; 11043; 87070; 87075; 87077; 87186; 87205; 97605

== ENCOUNTER 2024-06-13 09:15 | Outpatient (RCR) | payer OTHER, SELFPAY ==
[2024-05-16 00:48] VITALS: BP 103/67; PULSE 65; RESP 16; TEMP 36.8; BMI 22.6
[2024-05-23 10:17] VITALS: BP 98/61; PULSE 63; RESP 18; TEMP 35.8; BMI 22.6
--- NOTE | 2024-05-23 12:23 | PCM.WC.PN ---
History of Present Illness Date of Service: 05/23/24 Chief Complaint: Right abdomen wound after surgery History of Wound: 38 year old male presents with right lateral abdomen wound after surgery 03/15/24 for Pheochromocytoma at [facility] by Dr. Toure. He developed a seroma after surgery, ended admitted to [place] and then transferred to [facility] where they took him back to surgery to evacuate the seroma. He was discharged home a week ago on Doxycycline antibiotics, with home health to help with his saline wet to dry dressings. Home health recommended he come into the wound center. Patient states that he does not have a follow up with the surgeon. History of high blood pressure and cardiac issues which were related to his Pheochromocytoma. He had been having elevated blood pressure episodes periodically for about 2 years. In January 2024, his symptoms worsened along with chest pain and heart arrhythmias. That was when the mass was an incidental finding on chest imaging. Wound cultures from 05/04/24 were positive for MSSA. He was treated with Augmentin. Today he denies fever, chills, nausea or vomiting. Progress of Wound: Ulcer is smaller in size. There is granulation tissue present in the base of the wound and much less fat necrosis. 3 o'clock tunnel is stable. He has some excoriation on his mara wound from the wound VAC drape. He stopped the wound VAC for a night over the weekend due to the discomfort and used Dakins moistened gauze. His reapplied the wound VAC the next day. He still has not had any follow up with the [facility] surgeon who did his surgery. Objective Data Objective Data Vital Signs: Vital Signs Temp Pulse Resp BP O2 Del Method 96.5 F L 63 18 98/61 Room Air 05/23/24 10:17 05/23/24 10:17 05/23/24 10:17 05/23/24 10:05/23/24 10:17 Oxygen Delivery Method Room Air Weight: 175 lb 12.943 oz Body Mass Index (BMI) 22.6 Charges/Coding Procedures Integumentary 111xxx-113xx: 09337 Virginie subq tissue 20 sq cm/< Debridement Note Debridement Note Wound debrided: lateral abdomen ulcer Laterality: Right Wound Grade/Stage: Grade 3 Type of Debridement: Excisional debridement Anesthesia Used: 5% Lidocaine Gel Depth: Down to and including healthy tissue and in the subcutaneous layer Percentage of wound debrided: 100 Instrument Used: 5mm curette Tissue Removed: Non viable tissue and slough Severity: Fat Layer Exposed Amount of bleeding with debridement: Mild Bleeding Controlled with: Compression and gauze Patient tolerated procedure: Patient tolerated procedure well Debridement Free Text: Sutures in the base of ulcer are still intact and not touched. Post-Debridement Measurements and Additional Note: Post-Debridement Measurements/Treatment WC - Nurse 1 - General Ulcer Assessment Start: 05/23/24 10:17 Freq: Status: Active Protocol: REHANA Activity Type Activity Date Activity User E-sign Co-sign Detail Recorded Client Recorded Date Recorded By Document 05/23/24 10:17 KW h 05/23/24 10:27 KW 05/23/24 10:17 WC - Today's Visit Information Type of service Follow-up Visit (Physician/MATERIALS ASSISTANT ) Arrival Mode Ambulatory Accompanied by Patient Identification Verified (Name & Yes ) Height and Weight Body Mass Index (BMI) 22.6 BMI Classification Normal Vital Signs Temperature (97.8 F-99.1 F) 96.5 F L Temperature Source Temporal Pulse Rate (60-100) 63 Pulse Location Monitor Respiratory Rate (12-18) 18 Respiratory rate source Observation Oxygen Delivery Method Room Air Blood Pressure (90/60-120/80) 98/61 Blood Pressure Mean (mm Hg) 73 Source Monitor Position Semi-Fowlers Blood Pressure Location Left Arm History Since Last Visit- (Skip if this is Patient's initial visit) Have you changed medications since your No last visit? Any new allergies or adverse reactions No Had a fall/change in ADL's that may No increase risk of falls Signs or symptoms of abuse and/or No neglect since last visit Have you been in the hospital since your No last visit? Has dressing in place as prescribed Yes Has compression in place as prescribed N/A Has offloadiing in place as prescribed N/A Experienced any changes in pain level or No management Left Footwear Regular Shoe Right Footwear Regular Shoe Pain Scale: 0-10 Numeric Is Patient Pain Free? No ABD -Intensity 4 -Alleviating Factors/Interventions Medication WC - Nurse 1 - General Ulcer Measurement Start: 05/23/24 10:17 Freq: Status: Active Protocol: Activity Type Activity Date Activity User E-sign Co-sign Detail Recorded Client Recorded Date Recorded By Document 07/08/24 10:17 KW h 05/23/24 10:27 KW 05/23/24 10:17 Wound Center Nurse 1 #1- R ABDOMEN -Current Size (cm) - Length 2 -Current Size (cm) - Width 3.5 -Current Size (cm) - Depth 1 -Total Square Cm 7.0 -Date of Last Picture (Recall this 05/23/24 field) -Tunneling Yes -Tunneling Position (O'clock) 3 -Tunneling Distance (cm) 8 -Exudate Amt Medium -Exudate Type Serosanguineous -Wound Margin Distinct, Outline Attached -Granulation Amt Small (1-33%) -Granulation Quality [place] -Necrosis Amt Large (67-100%) -Necrotic Tissue Type Adherent Slough -Texture (Mara-wound Skin Appearance) Assessed,Rash -Moisture (Mara-wound Skin Appearance) Assessed -Color (Mara-wound Skin Appearance) Assessed, Erythema -Temperature (Mara-wound Skin No Abnormality Appearance) (Pt Warm) -Tenderness on Palpation (Mara-wound No Skin Appearance) -Ulcer Cleansing Rinsed/ Irrigated with Saline -Foul Odor after Cleansing No -Anesthetic Used 4% Lidocaine Solution WC - Nurse 2 - General Ulcer CM Notes Start: 05/23/24 10:17 Freq: Status: Active Protocol: Activity Type Activity Date Activity User E-sign Co-sign Detail Recorded Client Recorded Date Recorded By Document 05/23/24 10:39 05/23/24 10:50 JF 05/23/24 10:39 Wound Center Nurse 2 -Time 10:39 -Correct Patient Yes -Correct Side, Site, Position Yes -Correct Procedure Yes -Procedure Performed Yes -Type of Procedure Debridement -Clinical Debridement Subcutaneous -Tissue Removed Subcutaneous -Post Debridement (cm) - Length 1.5 -Post Debridement (cm) - Width 3.1 -Post Debridement (cm) - Depth 1.2 -Total Square (Post) (cm) 4.65 -Area of Debridement (cm) - Length 1.5 -Area of Debridement (cm) - Width 3.1 -Total Square (Area) (cm) 4.65 -Tunneling Yes -Tunneling Position (O'clock) 3 -Tunneling Distance (cm) 7.4 -Undermining/Tunneling No -Circular Undermining No -Wound/Ulcer Outcome Not Healed -Ulcer Cleansing Rinsed/ Irrigated with Saline -Foul Odor after Cleansing No -Bioengineered Tissue No -Bleeding Controlled with Pressure -Treatment Response Procedure Tolerated Well -Offloading No -Debridement - Subq, 1st 20sq cm Yes Pain Scale: 0-10 Numeric Is Patient Pain Free? Yes WC - Nurse 3 - General Ulcer D/C NN Start: 05/23/24 10:17 Freq: Status: Active Protocol: Activity Type Activity Date Activity User E-sign Co-sign Detail Recorded Client Recorded Date Recorded By Document 05/23/24 10:58 KW h 05/23/24 10:59 KW 05/23/24 10:58 Wound Care Center Nurse 3 #1- R ABDOMEN -Primary Dressing Applied Hysept ($) -Primary Dressing Covered/Secured with Dry Gauze, Secured with Tape Pain Scale: 0-10 Numeric Is Patient Pain Free? 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 Two sutures are still intact and visible in base of ulcer. Did not touch the sutures. Wound care - Wound VAC holiday until Thursday to allow periwound to heal. When we restart the wound VAC on Thursday at 150 mmHg to be changed 3 times per week. He will do daily Dakin's 0.25% moistened gauze dressing changes covered with ABD until Thursday. Wound culture from 05/04/24 positive for Staphylococcus aureus which is sensitive to Augmentin which he is currently on. Spoke with Dr. Cardenas ([phone]), associate of Dr. Toure on 04/20/24 and they would like a wound VAC in place. He has home health to assist with the dressing changes and his is an RN who also is able to assist him with his dressing changes. He currently does not have a follow up with his surgeon. He states he has called and left messages to schedule a follow up with his surgeon, no one returns his calls. Follow up one week.
--- NOTE | 2024-05-26 09:22 | WC ---
PHOTO 05/23/2024 RIGHT ABD
[2024-05-30 09:33] VITALS: BP 109/63; PULSE 82; RESP 18; TEMP 35.8; BMI 22.6
--- NOTE | 2024-05-30 10:29 | PN.PCM_ITS ---
History of Present Illness Date of Service: 05/30/24 Chief Complaint: Right abdomen wound after surgery History of Wound: 38 year old male presents with right lateral abdomen wound after surgery 03/15/24 for Pheochromocytoma at [facility] by Dr. Toure. He developed a seroma after surgery, ended admitted to [place] and then transferred to [facility] where they took him back to surgery to evacuate the seroma. He was discharged home a week ago on Doxycycline antibiotics, with home health to help with his saline wet to dry dressings. Home health recommended he come into the wound center. Patient states that he does not have a follow up with the surgeon. History of high blood pressure and cardiac issues which were related to his Pheochromocytoma. He had been having elevated blood pressure episodes periodically for about 2 years. In January 2024, his symptoms worsened along with chest pain and heart arrhythmias. That was when the mass was an incidental finding on chest imaging. Wound cultures from 05/04/24 were positive for MSSA. He was treated with Augmentin. Today he denies fever, chills, nausea or vomiting. Progress of Wound: Ulcer is slightly smaller in size. 3 o'clock tunnel is slightly smaller. Luzma wound is no longer excoriated. He restarted wound VAC on Thursday and has not been having any issues. Objective Data Objective Data Vital Signs: Vital Signs Temp Pulse Resp BP O2 Del Method 96.5 F L 82 18 109/63 Room Air 05/30/24 09:33 05/30/24 09:33 05/30/24 09:33 05/30/24 09:33 05/30/24 09:33 Oxygen Delivery Method Room Air Weight: 175 lb 12.943 oz Body Mass Index (BMI) 22.6 Charges/Coding Procedures Integumentary 111xxx-113xx: 14946 Virginie subq tissue 20 sq cm/< Debridement Note Debridement Note Wound debrided: lateral abdomen ulcer Laterality: Right Wound Grade/Stage: Grade 3 Type of Debridement: Excisional debridement Anesthesia Used: 5% Lidocaine Gel Depth: Down to and including healthy tissue and in the subcutaneous layer Percentage of wound debrided: 100 Instrument Used: 5mm curette Tissue Removed: Non viable tissue and slough Severity: Fat Layer Exposed Amount of bleeding with debridement: Mild Bleeding Controlled with: Compression and gauze Patient tolerated procedure: Patient tolerated procedure well Debridement Free Text: Sutures in the base of ulcer are still intact and not touched. Post-Debridement Measurements and Additional Note: Post-Debridement Measurements/Treatment WC - Nurse 1 - General Ulcer Assessment Start: 05/23/24 10:17 Freq: Status: Active Protocol: REHANA Activity Type Activity Date Activity User E-sign Co-sign Detail Recorded Client Recorded Date Recorded By Document 05/23/24 10:17 KW h 05/23/24 10:27 KW Document 05/30/24 09:33 KW g 05/30/24 09:39 KW 05/23/24 05/30/24 10:17 09:33 WC - Today's Visit Information Type of service Follow-up Visit Follow-up Visit (Physician/TIME STUDY OBSERVER (Physician/TIME STUDY OBSERVER ) ) Arrival Mode Ambulatory Ambulatory Accompanied by Patient Identification Verified (Name & Yes Yes ) Finger Stick Blood Sugar(mg/dl) (if 109/63 indicated): Blood Sugar Stated by Patient Height and Weight Body Mass Index (BMI) 22.6 22.6 BMI Classification Normal Normal Vital Signs Temperature (97.8 F-99.1 F) 96.5 F L 96.5 F L Temperature Source Temporal Temporal Pulse Rate (60-100) 63 82 Pulse Location Monitor Monitor Respiratory Rate (12-18) 18 18 Respiratory rate source Observation Observation Oxygen Delivery Method Room Air Room Air Blood Pressure (90/60-120/80) 98/61 109/63 Blood Pressure Mean (mm Hg) 73 78 Source Monitor Monitor Position Semi-Fowlers Sitting Blood Pressure Location Left Arm Left Arm History Since Last Visit- (Skip if this is Patient's initial visit) Have you changed medications since your No No last visit? Any new allergies or adverse reactions No No Had a fall/change in ADL's that may No No increase risk of falls Signs or symptoms of abuse and/or No No neglect since last visit Have you been in the hospital since your No No last visit? Has dressing in place as prescribed Yes Yes Has compression in place as prescribed N/A N/A Has offloadiing in place as prescribed N/A N/A Experienced any changes in pain level or No No management Left Footwear Regular Shoe Regular Shoe Right Footwear Regular Shoe Regular Shoe Pain Scale: 0-10 Numeric Is Patient Pain Free? No Yes ABD -Intensity 4 -Alleviating Factors/Interventions Medication - Nurse 1 - General Ulcer Measurement Start: 05/23/24 10:17 Freq: Status: Active Protocol: Activity Type Activity Date Activity User E-sign Co-sign Detail Recorded Client Recorded Date Recorded By Document 05/23/24 10:17 KW h 05/23/24 10:27 KW Document 05/30/24 09:33 KW g 05/30/24 09:39 KW 05/23/24 05/30/24 10:17 09:33 Wound Center Nurse 1 #1- R ABDOMEN -Current Size (cm) - Length 2 0.9 -Current Size (cm) - Width 3.5 2.8 -Current Size (cm) - Depth 1 1.2 -Total Square Cm 7.0 2.52 -Date of Last Picture (Recall this 05/23/24 field) -Tunneling Yes -Tunneling Position (O'clock) 3 3 -Tunneling Distance (cm) 8 4 -Exudate Amt Medium Medium -Exudate Type Serosanguineous Serosanguineous -Wound Margin Distinct, Distinct, Outline Outline Attached Attached -Granulation Amt Small (1-33%) Medium (34-66%) -Granulation Quality [place] Red -Necrosis Amt Large (67-100%) Medium (34-66%) -Necrotic Tissue Type Adherent Slough Adherent Slough -Texture (Luzma-wound Skin Appearance) Assessed,Rash Assessed -Moisture (Luzma-wound Skin Appearance) Assessed Assessed -Color (Luzma-wound Skin Appearance) Assessed, Assessed Erythema -Temperature (Luzma-wound Skin No Abnormality No Abnormality Appearance) (Pt Warm) (Pt Warm) -Tenderness on Palpation (Luzma-wound No No Skin Appearance) -Ulcer Cleansing Rinsed/ Soap and Water Irrigated with Saline -Foul Odor after Cleansing No No -Anesthetic Used 4% Lidocaine 4% Lidocaine Solution Solution WC - Nurse 2 - General Ulcer CM Notes Start: 05/23/24 10:17 Freq: Status: Active Protocol: Activity Type Activity Date Activity User E-sign Co-sign Detail Recorded Client Recorded Date Recorded By Document 05/23/24 10:39 JF 00 05/23/24 10:50 JF Document 05/30/24 09:44 BMF [id number] 05/30/24 09:53 BMF 05/23/24 05/30/24 10:39 09:44 Wound Center Nurse 2 #1- R ABDOMEN -Time 10:39 09:45 -Correct Patient Yes Yes -Correct Side, Site, Position Yes Yes -Correct Procedure Yes Yes -Procedure Performed Yes Yes -Type of Procedure Debridement Debridement -Clinical Debridement Subcutaneous Subcutaneous -Tissue Removed Subcutaneous Subcutaneous -Post Debridement (cm) - Length 1.5 1.5 -Post Debridement (cm) - Width 3.1 3 -Post Debridement (cm) - Depth 1.2 0.8 -Total Square (Post) (cm) 4.65 4.5 -Area of Debridement (cm) - Length 1.5 1.5 -Area of Debridement (cm) - Width 3.1 3 -Total Square (Area) (cm) 4.65 4.5 -Tunneling Yes Yes -Tunneling Position (O'clock) 3 3 -Tunneling Distance (cm) 7.4 7.2 -Undermining/Tunneling No -Circular Undermining No -Wound/Ulcer Outcome Not Healed Not Healed -Ulcer Cleansing Rinsed/ Rinsed/ Irrigated with Irrigated with Saline Saline -Foul Odor after Cleansing No No -Bioengineered Tissue No No -Bleeding Controlled with Pressure Pressure -Treatment Response Procedure Procedure Tolerated Well Tolerated Well -Offloading No -Debridement - Subq, 1st 20sq cm Yes -Debridement - Muscle / Fascia, 1st Yes 20sq cm Pain Scale: 0-10 Numeric Is Patient Pain Free? Yes Yes - Nurse 3 - General Ulcer D/C NN Start: 05/23/24 10:17 Freq: Status: Active Protocol: Activity Type Activity Date Activity User E-sign Co-sign Detail Recorded Client Recorded Date Recorded By Document 05/23/24 10:58 KW h 05/23/24 10:59 KW Document 05/30/24 09:57 KW g 05/30/24 09:57 KW 05/23/24 05/30/24 10:58 09:57 Wound Care Center Nurse 3 #1- R ABDOMEN -Ulcer Cleansing Soap and Water -Negative Pressure Wound Therapy Continue -Setting (mmHg) 150 -Primary Dressing Applied Hysept ($) -Primary Dressing Covered/Secured with Dry Gauze, Secured with Tape -NPWT Application Charge NPWT & Debridement (nc ) Pain Scale: 0-10 Numeric Is Patient Pain Free? Yes Yes WC - Visit Discharge Discharge Condition Stable Stable Ambulatory Status Ambulatory Ambulatory Transportation Private Auto Private Auto Accompanied by Medication Reconcilliation completed & No No provided to patient/care provider Clinical Summary of Care Provided Yes Yes Assessment/Plan Assessment/Plan (1) Ulcer of abdomen wall with fat layer exposed: CODE(S): L98.492 - Non-pressure chronic ulcer of skin of other sites with fat layer exposed (2) Pheochromocytoma of right adrenal gland: CODE(S): D35.01 - Benign neoplasm of right adrenal gland PLAN: Plan Patient evaluated at the wound healing center. Two sutures are still intact and visible in base of ulcer. Did not touch the sutures. Wound care - Wound VAC at 150 mmHg to be changed 3 times per week. Wash ulcer and luzma wound with soap and water at the time of the dressing changes. May only be able to use the wound VAC for another 1-2 weeks due to the decreasing size of the ulcer. Wound culture from 05/04/24 positive for Staphylococcus aureus which is sensitive to Augmentin which he is currently on. Spoke with Dr. Cardenas ([phone]), associate of Dr. Toure on 04/20/24 and they would like a wound VAC in place. He has home health to assist with the dressing changes and his is an RN who also is able to assist him with his dressing changes. He currently does not have a follow up with his surgeon. He states he has called and left messages to schedule a follow up with his surgeon, no one returns his calls. Follow up one week.
--- NOTE | 2024-06-02 10:33 | WC ---
PT CALLED. EXPERIENCING ^ WOUND DRAINAGE AND PAIN. SEEMS WORSE WHEN VAC IS ON. TORRES VELIZ NOTIFIED. SHE CALLED PT. VAC IS PLACED ON HOLD UNTIL NEXT WEEK. RESUME DAILY [employer]AKINS DRESSINGS, AND RESTARTED PT'S AUGMENTIN.
[2024-06-06 09:03] VITALS: BP 104/60; PULSE 58; RESP 18; TEMP 36.2; BMI 22.6
--- NOTE | 2024-06-06 09:34 | PN.PCM_ITS ---
History of Present Illness Date of Service: 06/06/24 Chief Complaint: Right abdomen wound after surgery History of Wound: 38 year old male presents with right lateral abdomen wound after surgery 03/15/24 for Pheochromocytoma at [facility] by Dr. Toure. He developed a seroma after surgery, ended admitted to [facility] and then transferred to [facility] where they took him back to surgery to evacuate the seroma. He was discharged home a week ago on Doxycycline antibiotics, with home health to help with his saline wet to dry dressings. Home health recommended he come into the wound center. Patient states that he does not have a follow up with the surgeon. History of high blood pressure and cardiac issues which were related to his Pheochromocytoma. He had been having elevated blood pressure episodes periodically for about 2 years. In January 2024, his symptoms worsened along with chest pain and heart arrhythmias. That was when the mass was an incidental finding on chest imaging. Wound cultures from 05/04/24 were positive for MSSA. He was treated with Augmentin. Today he denies fever, chills, nausea or vomiting. Progress of Wound: Patient phoned at that end of last week stating that he was having issues with his wound VAC. He states that the foam is in the tunnel, but it appears that the tunnel is small enough that it isn't draining properly and that the foam is actually blocking fluid. When they remove the foam, there is large amount of drainage that comes out. He also has had increased pain and not feeling well. Denies fever. With the symptoms he was having, I restarted him on Augmentin last week. Today, the ulcer opening is smaller. The tunnel shows no improvement in length, it is getting more difficult to pack it. I phoned Dr. Marcelino Toure's office ([phone]) and left a message to be called back to discuss what he would like done. He has never had any follow up with them and he is still in his global period. A wound culture was obtained today.? Objective Data Objective Data Vital Signs: Vital Signs Temp Pulse Resp BP O2 Del Method 97.1 F L 58 L 18 104/60 Room Air 06/06/24 09:03 06/06/24 09:03 06/06/24 09:03 06/06/24 09:03 06/06/24 09:03 Oxygen Delivery Method Room Air Weight: 175 lb 12.943 oz Body Mass Index (BMI) 22.6 Charges/Coding Procedures Integumentary 111xxx-113xx: [id number] Virginie subq tissue 20 sq cm/< Debridement Note Debridement Note Wound debrided: lateral abdomen ulcer Laterality: Right Wound Grade/Stage: Grade 3 Type of Debridement: Excisional debridement Anesthesia Used: 5% Lidocaine Gel Depth: Down to and including healthy tissue and in the subcutaneous layer Percentage of wound debrided: 100 Instrument Used: 5mm curette Tissue Removed: Non viable tissue and slough Severity: Fat Layer Exposed Amount of bleeding with debridement: Mild Bleeding Controlled with: Compression and gauze Patient tolerated procedure: Patient tolerated procedure well Debridement Free Text: Sutures in the base of ulcer are still intact and not touched. Post-Debridement Measurements and Additional Note: Post-Debridement Measurements/Treatment - Nurse 1 - General Ulcer Assessment Start: 05/23/24 10:17 Freq: Status: Active Protocol: JUAN CARLOS.PER Activity Type Activity Date Activity User E-sign Co-sign Detail Recorded Client Recorded Date Recorded By Document 05/23/24 10:17 KW h 05/23/24 10:27 KW Document 05/30/24 09:33 KW g 05/30/24 09:39 KW Document 06/06/24 09:03 KW l 06/06/24 09:08 KW 05/23/24 05/30/24 06/06/24 10:17 09:33 09:03 - Today's Visit Information Type of service Follow-up Visit Follow-up Visit Follow-up Visit (Physician/IMPLEMENTATION PROJECT COORDINATOR (Physician/IMPLEMENTATION PROJECT COORDINATOR (Physician/IMPLEMENTATION PROJECT COORDINATOR ) ) ) Arrival Mode Ambulatory Ambulatory Ambulatory Accompanied by Patient Identification Verified (Name & Yes Yes Yes ) Finger Stick Blood Sugar(mg/dl) (if 109/63 indicated): Blood Sugar Stated by Patient Height and Weight Body Mass Index (BMI) 22.6 22.6 22.6 BMI Classification Normal Normal Normal Vital Signs Temperature (97.8 F-99.1 F) 96.5 F L 96.5 F L 97.1 F L Temperature Source Temporal Temporal Temporal Pulse Rate (60-100) 63 82 58 L Pulse Location Monitor Monitor Monitor Respiratory Rate (12-18) 18 18 18 Respiratory rate source Observation Observation Observation Oxygen Delivery Method Room Air Room Air Room Air Blood Pressure (90/60-120/80) 98/61 109/63 104/60 Blood Pressure Mean (mm Hg) 73 78 74 Source Monitor Monitor Monitor Position Semi-Fowlers Sitting Semi-Fowlers Blood Pressure Location Left Arm Left Arm Left Arm History Since Last Visit- (Skip if this is Patient's initial visit) Have you changed medications since your No No No last visit? Any new allergies or adverse reactions No No No Had a fall/change in ADL's that may No No No increase risk of falls Signs or symptoms of abuse and/or No No No neglect since last visit Have you been in the hospital since your No No No last visit? Has dressing in place as prescribed Yes Yes Yes Has compression in place as prescribed N/A N/A N/A Has offloadiing in place as prescribed N/A N/A N/A Experienced any changes in pain level or No No No management Left Footwear Regular Shoe Regular Shoe Regular Shoe Right Footwear Regular Shoe Regular Shoe Regular Shoe Pain Scale: 0-10 Numeric Is Patient Pain Free? No Yes Yes ABD -Intensity 4 -Alleviating Factors/Interventions Medication WC - Nurse 1 - General Ulcer Measurement Start: 05/23/24 10:17 Freq: Status: Active Protocol: Activity Type Activity Date Activity User E-sign Co-sign Detail Recorded Client Recorded Date Recorded By Document 05/23/24 10:17 KW h 05/23/24 10:27 KW Document 05/30/24 09:33 KW g 05/30/24 09:39 KW Document 06/06/24 09:03 KW l 06/06/24 09:08 KW 05/23/24 05/30/24 06/06/24 10:17 09:33 09:03 Wound Center Nurse 1 #1- R ABDOMEN -Current Size (cm) - Length 2 0.9 2 -Current Size (cm) - Width 3.5 2.8 3 -Current Size (cm) - Depth 1 1.2 2 -Total Square Cm 7.0 2.52 6 -Date of Last Picture (Recall this 05/23/24 06/06/24 field) -Tunneling Yes -Tunneling Position (O'clock) 3 3 -Tunneling Distance (cm) 8 4 -Exudate Amt Medium Medium Medium -Exudate Type Serosanguineous Serosanguineous Serosanguineous -Wound Margin Distinct, Distinct, Distinct, Outline Outline Outline Attached Attached Attached -Granulation Amt Small (1-33%) Medium (34-66%) Large (67-100%) -Granulation Quality Wineglass Red Wineglass,Red -Necrosis Amt Large (67-100%) Medium (34-66%) Medium (34-66%) -Necrotic Tissue Type Adherent Slough Adherent Slough Adherent Slough -Texture (Luzma-wound Skin Appearance) Assessed,Rash Assessed Assessed -Moisture (Luzma-wound Skin Appearance) Assessed Assessed Assessed -Color (Luzma-wound Skin Appearance) Assessed, Assessed Assessed Erythema -Temperature (Luzma-wound Skin No Abnormality No Abnormality No Abnormality Appearance) (Pt Warm) (Pt Warm) (Pt Warm) -Tenderness on Palpation (Luzma-wound No No No Skin Appearance) -Ulcer Cleansing Rinsed/ Soap and Water Soap and Water Irrigated with Saline -Foul Odor after Cleansing No No No -Anesthetic Used 4% Lidocaine 4% Lidocaine 4% Lidocaine Solution Solution Solution WC - Nurse 2 - General Ulcer CM Notes Start: 05/23/24 10:17 Freq: Status: Active Protocol: Activity Type Activity Date Activity User E-sign Co-sign Detail Recorded Client Recorded Date Recorded By Document 05/23/24 10:39 JF 00 05/23/24 10:50 JF Document 05/30/24 09:44 BMF [id number] 05/30/24 09:53 BMF Edit Result 05/30/24 09:44 BMF (1) [id number] 05/30/24 12:01 BMF Document 06/06/24 09:15 BMF [id number] 06/06/24 09:24 BMF (1) #1- R ABDOMEN - Clinical Debridement Muscle / Fascia => Subcutaneous - Tissue Removed Muscle => Subcutaneous - Debridement - Subq, 1st 20sq cm => Yes - Debridement - Muscle / Fascia, 1st Yes => 20sq cm 05/23/24 05/30/24 06/06/24 10:39 09:44 09:15 Wound Center Nurse 2 #1- R ABDOMEN -Time 10:39 09:45 09:15 -Correct Patient Yes Yes Yes -Correct Side, Site, Position Yes Yes Yes -Correct Procedure Yes Yes Yes -Procedure Performed Yes Yes Yes -Type of Procedure Debridement Debridement Debridement -Clinical Debridement Subcutaneous Subcutaneous Subcutaneous -Tissue Removed Subcutaneous Subcutaneous Subcutaneous -Post Debridement (cm) - Length 1.5 1.5 1.6 -Post Debridement (cm) - Width 3.1 3 2.5 -Post Debridement (cm) - Depth 1.2 0.8 0.6 -Total Square (Post) (cm) 4.65 4.5 4.00 -Area of Debridement (cm) - Length 1.5 1.5 1.6 -Area of Debridement (cm) - Width 3.1 3 2.5 -Total Square (Area) (cm) 4.65 4.5 4.00 -Tunneling Yes Yes Yes -Tunneling Position (O'clock) 3 3 3 -Tunneling Distance (cm) 7.4 7.2 7.5 -Undermining/Tunneling No No -Circular Undermining No No -Wound/Ulcer Outcome Not Healed Not Healed Not Healed -Ulcer Cleansing Rinsed/ Rinsed/ Rinsed/ Irrigated with Irrigated with Irrigated with Saline Saline Saline -Foul Odor after Cleansing No No No -Bioengineered Tissue No No No -Bleeding Controlled with Pressure Pressure Pressure -Treatment Response Procedure Procedure Procedure Tolerated Well Tolerated Well Tolerated Well -Offloading No -Debridement - Subq, 1st 20sq cm Yes Yes Yes Pain Scale: 0-10 Numeric Is Patient Pain Free? Yes Yes Yes - Nurse 3 - General Ulcer D/C NN Start: 05/23/24 10:17 Freq: Status: Active Protocol: Activity Type Activity Date Activity User E-sign Co-sign Detail Recorded Client Recorded Date Recorded By Document 05/23/24 10:58 KW h 05/23/24 10:59 KW Document 05/30/24 09:57 KW g 05/30/24 09:57 KW 05/23/24 05/30/24 10:58 09:57 Wound Care Center Nurse 3 #1- R ABDOMEN -Ulcer Cleansing Soap and Water -Negative Pressure Wound Therapy Continue -Setting (mmHg) 150 -Primary Dressing Applied Hysept ($) -Primary Dressing Covered/Secured with Dry Gauze, Secured with Tape -NPWT Application Charge NPWT & Debridement (nc ) Pain Scale: 0-10 Numeric Is Patient Pain Free? Yes Yes WC - Visit Discharge Discharge Condition Stable Stable Ambulatory Status Ambulatory Ambulatory Transportation Private Auto Private Auto Accompanied by Medication Reconcilliation completed & No No provided to patient/care provider Clinical Summary of Care Provided Yes Yes Assessment/Plan Assessment/Plan (1) Ulcer of abdomen wall with fat layer exposed: CODE(S): L98.492 - Non-pressure chronic ulcer of skin of other sites with fat layer exposed (2) Pheochromocytoma of right adrenal gland: CODE(S): D35.01 - Benign neoplasm of right adrenal gland PLAN: Plan Patient evaluated at the wound healing center. Sutures are still intact and visible in base of ulcer. Did not touch the sutures. Wound care - Discontinue the wound VAC. Dakin's 0.25% moistened gauze packed into tunnel and base of ulcer daily. Wash ulcer and luzma wound with soap and water at the time of the dressing changes. Wound culture from 05/04/24 positive for Staphylococcus aureus which is sensitive to Augmentin which he is currently on. A wound culture was obtained today.? A positive culture will necessitate a change in antibiotic therapy. I phoned Dr. Marcelino Toure's office ([phone]) and left a message to be called back. He has never had any follow up with them and he is still in his global period. With the tunnel depth not improving. My concern is that this may need an operative debridement. On 04/20/24 - I spoke with Dr. Cardenas ([phone]), associate of Dr. Toure, and they wanted a wound VAC placed. He has home health to assist with the dressing changes and his is an RN who also is able to assist him with his dressing changes. Follow up one week.
[2024-06-13 09:19] VITALS: BP 98/55; PULSE 57; RESP 18; TEMP 35.9; BMI 22.6
--- NOTE | 2024-06-13 10:10 | PCM.WC.PN ---
History of Present Illness Date of Service: 06/13/24 Chief Complaint: Right abdomen wound after surgery History of Wound: 39 year old male presents with right lateral abdomen wound after surgery 03/15/24 for Pheochromocytoma at [facility] by Dr. Toure. He developed a seroma after surgery, ended admitted to [place] and then transferred to [facility] where they took him back to surgery to evacuate the seroma. He was discharged home a week ago on Doxycycline antibiotics, with home health to help with his saline wet to dry dressings. Home health recommended he come into the wound center. Patient states that he does not have a follow up with the surgeon. History of high blood pressure and cardiac issues which were related to his Pheochromocytoma. He had been having elevated blood pressure episodes periodically for about 2 years. In January 2024, his symptoms worsened along with chest pain and heart arrhythmias. That was when the mass was an incidental finding on chest imaging. Wound cultures from 05/04/24 were positive for MSSA. He was treated with Augmentin. Today he denies fever, chills, nausea or vomiting. Progress of Wound: Patient was referred to Dr. Mclain, general surgeon, by his PCP. He saw him last week and Dr. Mclain stated that he does not think that Collin needs any surgical intervention at this time and to continue to wound care. He did order a CT scan. He states that he believes some of the healing issues is that there may be sutures that still need to dissolve and it can take 6-8 months for that to occur and that Collin's body is treating it like a foreign body. Dr. Mclain did remove some of the more superficial sutures. Overall the ulcer is stable, base is beefy pink. Continues to have a significant tunnel. Objective Data Objective Data Vital Signs: Vital Signs Temp Pulse Resp BP O2 Del Method 96.6 F L 57 L 18 98/55 L Room Air 06/13/24 09:19 06/13/24 09:19 06/13/24 09:19 06/13/24 09:19 06/06/24 09:03 Oxygen Delivery Method Room Air Weight: 175 lb 12.943 oz Body Mass Index (BMI) 22.6 Lab / Micro Data Micro: Microbiology 06/06/24 09:20 Wound - Other Gram Stain - Final 06/06/24 09:20 Wound - Other Wound Culture - Final Staphylococcus aureus Charges/Coding Procedures Integumentary 111xxx-113xx: 38435 Virginie subq tissue 20 sq cm/< Debridement Note Debridement Note Wound debrided: lateral abdomen ulcer Laterality: Right Wound Grade/Stage: Grade 3 Type of Debridement: Excisional debridement Anesthesia Used: 5% Lidocaine Gel Depth: Down to and including healthy tissue and in the subcutaneous layer Percentage of wound debrided: 100 Instrument Used: 5mm curette Tissue Removed: Non viable tissue and slough Severity: Fat Layer Exposed Amount of bleeding with debridement: Mild Bleeding Controlled with: Compression and gauze Patient tolerated procedure: Patient tolerated procedure well Debridement Free Text: Non viable tissue and and slough removed. Post-Debridement Measurements and Additional Note: Post-Debridement Measurements/Treatment - Nurse 1 - General Ulcer Assessment Start: 05/23/24 10:17 Freq: Status: Active Protocol: REHANA Activity Type Activity Date Activity User E-sign Co-sign Detail Recorded Client Recorded Date Recorded By Document 05/23/24 10:17 KW h 05/23/24 10:27 KW Document 05/30/24 09:33 KW g 05/30/24 09:39 KW Document 06/06/24 09:03 KW l 06/06/24 09:08 KW Document 06/13/24 09:19 DL [email or web address] 06/13/24 09:26 DL 05/23/24 05/30/24 06/06/24 10:17 09:33 09:03 - Today's Visit Information Type of service Follow-up Visit Follow-up Visit Follow-up Visit (Physician/FOREIGN EXCHANGE CLERK (Physician/FOREIGN EXCHANGE CLERK (Physician/FOREIGN EXCHANGE CLERK ) ) ) Arrival Mode Ambulatory Ambulatory Ambulatory Transfer Assistance Accompanied by Patient Identification Verified (Name & Yes Yes Yes ) Patient Requires Transmission-Based Precautions Finger Stick Blood Sugar(mg/dl) (if 109/63 indicated): Blood Sugar Stated by Patient Height and Weight Body Mass Index (BMI) 22.6 22.6 22.6 BMI Classification Normal Normal Normal Vital Signs Temperature (97.8 F-99.1 F) 96.5 F L 96.5 F L 97.1 F L Temperature Source Temporal Temporal Temporal Pulse Rate (60-100) 63 82 58 L Pulse Location Monitor Monitor Monitor Respiratory Rate (12-18) 18 18 18 Respiratory rate source Observation Observation Observation Oxygen Delivery Method Room Air Room Air Room Air Blood Pressure (90/60-120/80) 98/61 109/63 104/60 Blood Pressure Mean (mm Hg) 73 78 74 Source Monitor Monitor Monitor Position Semi-Fowlers Sitting Semi-Fowlers Blood Pressure Location Left Arm Left Arm Left Arm History Since Last Visit- (Skip if this is Patient's initial visit) Have you changed medications since your No No No last visit? Any new allergies or adverse reactions No No No Had a fall/change in ADL's that may No No No increase risk of falls Signs or symptoms of abuse and/or No No No neglect since last visit Have you been in the hospital since your No No No last visit? Has dressing in place as prescribed Yes Yes Yes Has compression in place as prescribed N/A N/A N/A Has offloadiing in place as prescribed N/A N/A N/A Experienced any changes in pain level or No No No management Left Footwear Regular Shoe Regular Shoe Regular Shoe Right Footwear Regular Shoe Regular Shoe Regular Shoe Pain Scale: 0-10 Numeric Is Patient Pain Free? No Yes Yes ABD -Intensity 4 -Alleviating Factors/Interventions Medication 06/13/24 09:19 WC - Today's Visit Information Type of service Follow-up Visit (Physician/FOREIGN EXCHANGE CLERK ) Arrival Mode Ambulatory Transfer Assistance None Accompanied by Patient Identification Verified (Name & Yes ) Patient Requires Transmission-Based No Precautions Finger Stick Blood Sugar(mg/dl) (if indicated): Blood Sugar Height and Weight Body Mass Index (BMI) 22.6 BMI Classification Normal Vital Signs Temperature (97.8 F-99.1 F) 96.6 F L Temperature Source Temporal Pulse Rate (60-100) 57 L Pulse Location Monitor Respiratory Rate (12-18) 18 Respiratory rate source Observation Oxygen Delivery Method Blood Pressure (90/60-120/80) 98/55 L Blood Pressure Mean (mm Hg) 69 Source Monitor Position Blood Pressure Location History Since Last Visit- (Skip if this is Patient's initial visit) Have you changed medications since your No last visit? Any new allergies or adverse reactions No Had a fall/change in ADL's that may No increase risk of falls Signs or symptoms of abuse and/or No neglect since last visit Have you been in the hospital since your No last visit? Has dressing in place as prescribed Yes Has compression in place as prescribed N/A Has offloadiing in place as prescribed Yes Experienced any changes in pain level or No management Left Footwear Right Footwear Pain Scale: 0-10 Numeric Is Patient Pain Free? Yes ABD -Intensity -Alleviating Factors/Interventions WC - Nurse 1 - General Ulcer Measurement Start: 05/23/24 10:17 Freq: Status: Active Protocol: Activity Type Activity Date Activity User E-sign Co-sign Detail Recorded Client Recorded Date Recorded By Document 05/23/24 10:17 KW h 05/23/24 10:27 KW Document 05/30/24 09:33 KW g 05/30/24 09:39 KW Document 06/06/24 09:03 KW l 06/06/24 09:08 KW Document 06/13/24 09:19 DL [email or web address] 06/13/24 09:26 DL 05/23/24 05/30/24 06/06/24 10:17 09:33 09:03 Wound Center Nurse 1 #1- R ABDOMEN -Current Size (cm) - Length 2 0.9 2 -Current Size (cm) - Width 3.5 2.8 3 -Current Size (cm) - Depth 1 1.2 2 -Total Square Cm 7.0 2.52 6 -Date of Last Picture (Recall this 05/23/24 06/06/24 field) -Photo Taken -Tunneling Yes -Tunneling Position (O'clock) 3 3 -Tunneling Distance (cm) 8 4 -Exudate Amt Medium Medium Medium -Exudate Type Serosanguineous Serosanguineous Serosanguineous -Wound Margin Distinct, Distinct, Distinct, Outline Outline Outline Attached Attached Attached -Granulation Amt Small (1-33%) Medium (34-66%) Large (67-100%) -Granulation Quality Witmer Red Witmer,Red -Necrosis Amt Large (67-100%) Medium (34-66%) Medium (34-66%) -Necrotic Tissue Type Adherent Slough Adherent Slough Adherent Slough -Structure Exposed -Texture (Luzma-wound Skin Appearance) Assessed,Rash Assessed Assessed -Moisture (Luzma-wound Skin Appearance) Assessed Assessed Assessed -Color (Luzma-wound Skin Appearance) Assessed, Assessed Assessed Erythema -Temperature (Luzma-wound Skin No Abnormality No Abnormality No Abnormality Appearance) (Pt Warm) (Pt Warm) (Pt Warm) -Tenderness on Palpation (Luzma-wound No No No Skin Appearance) -Ulcer Cleansing Rinsed/ Soap and Water Soap and Water Irrigated with Saline -Foul Odor after Cleansing No No No -Anesthetic Used 4% Lidocaine 4% Lidocaine 4% Lidocaine Solution Solution Solution 06/13/24 09:19 Wound Center Nurse 1 #1- R ABDOMEN -Current Size (cm) - Length -Current Size (cm) - Width -Current Size (cm) - Depth -Total Square Cm -Date of Last Picture (Recall this field) -Photo Taken Yes -Tunneling -Tunneling Position (O'clock) -Tunneling Distance (cm) -Exudate Amt Small -Exudate Type Serosanguineous -Wound Margin Distinct, Outline Attached -Granulation Amt Medium (34-66%) -Granulation Quality Red -Necrosis Amt -Necrotic Tissue Type Adherent Slough -Structure Exposed N/A -Texture (Luzma-wound Skin Appearance) Scarring -Moisture (Luzma-wound Skin Appearance) No Abnormality -Color (Luzma-wound Skin Appearance) No Abnormality -Temperature (Luzma-wound Skin No Abnormality Appearance) (Pt Warm) -Tenderness on Palpation (Luzma-wound Skin Appearance) -Ulcer Cleansing Soap and Water -Foul Odor after Cleansing No -Anesthetic Used 5% Lidocaine Gel WC - Nurse 2 - General Ulcer CM Notes Start: 05/23/24 10:17 Freq: Status: Active Protocol: Activity Type Activity Date Activity User E-sign Co-sign Detail Recorded Client Recorded Date Recorded By Document 05/23/24 10:39 JF 00 05/23/24 10:50 JF Document 05/30/24 09:44 BMF [email or web address] 05/30/24 09:53 BMF Edit Result 05/30/24 09:44 BMF (1) [id number] 05/30/24 12:01 BMF Document 06/06/24 09:15 BMF [email or web address] 06/06/24 09:24 BMF Document 06/13/24 09:33 BMF [email or web address] 06/13/24 09:44 BMF (1) #1- R ABDOMEN - Clinical Debridement Muscle / Fascia => Subcutaneous - Tissue Removed Muscle => Subcutaneous - Debridement - Subq, 1st 20sq cm => Yes - Debridement - Muscle / Fascia, 1st Yes => 20sq cm 05/23/24 05/30/24 06/06/24 10:39 09:44 09:15 Wound Center Nurse 2 #1- R ABDOMEN -Time 10:39 09:45 09:15 -Correct Patient Yes Yes Yes -Correct Side, Site, Position Yes Yes Yes -Correct Procedure Yes Yes Yes -Procedure Performed Yes Yes Yes -Type of Procedure Debridement Debridement Debridement -Clinical Debridement Subcutaneous Subcutaneous Subcutaneous -Tissue Removed Subcutaneous Subcutaneous Subcutaneous -Post Debridement (cm) - Length 1.5 1.5 1.6 -Post Debridement (cm) - Width 3.1 3 2.5 -Post Debridement (cm) - Depth 1.2 0.8 0.6 -Total Square (Post) (cm) 4.65 4.5 4.00 -Area of Debridement (cm) - Length 1.5 1.5 1.6 -Area of Debridement (cm) - Width 3.1 3 2.5 -Total Square (Area) (cm) 4.65 4.5 4.00 -Tunneling Yes Yes Yes -Tunneling Position (O'clock) 3 3 3 -Tunneling Distance (cm) 7.4 7.2 7.5 -Undermining/Tunneling No No -Circular Undermining No No -Wound/Ulcer Outcome Not Healed Not Healed Not Healed -Ulcer Cleansing Rinsed/ Rinsed/ Rinsed/ Irrigated with Irrigated with Irrigated with Saline Saline Saline -Foul Odor after Cleansing No No No -Bioengineered Tissue No No No -Bleeding Controlled with Pressure Pressure Pressure -Treatment Response Procedure Procedure Procedure Tolerated Well Tolerated Well Tolerated Well -Offloading No -Debridement - Subq, 1st 20sq cm Yes Yes Yes Pain Scale: 0-10 Numeric Is Patient Pain Free? Yes Yes Yes 06/13/24 09:33 Wound Center Nurse 2 #1- R ABDOMEN -Time 09:34 -Correct Patient Yes -Correct Side, Site, Position Yes -Correct Procedure Yes -Procedure Performed Yes -Type of Procedure Debridement -Clinical Debridement Subcutaneous -Tissue Removed Subcutaneous -Post Debridement (cm) - Length 1.5 -Post Debridement (cm) - Width 2.5 -Post Debridement (cm) - Depth 0.6 -Total Square (Post) (cm) 3.75 -Area of Debridement (cm) - Length 1.5 -Area of Debridement (cm) - Width 2.5 -Total Square (Area) (cm) 3.75 -Tunneling Yes -Tunneling Position (O'clock) 3 -Tunneling Distance (cm) 7.3 -Undermining/Tunneling No -Circular Undermining No -Wound/Ulcer Outcome Not Healed -Ulcer Cleansing Rinsed/ Irrigated with Saline -Foul Odor after Cleansing No -Bioengineered Tissue No -Bleeding Controlled with Pressure -Treatment Response Procedure Tolerated Well -Offloading -Debridement - Subq, 1st 20sq cm Yes Pain Scale: 0-10 Numeric Is Patient Pain Free? Yes WC - Nurse 3 - General Ulcer D/C NN Start: 05/23/24 10:17 Freq: Status: Active Protocol: Activity Type Activity Date Activity User E-sign Co-sign Detail Recorded Client Recorded Date Recorded By Document 05/23/24 10:58 KW h 05/23/24 10:59 KW Document 05/30/24 09:57 KW g 05/30/24 09:57 KW Document 06/06/24 09:36 DL [email or web address] 06/06/24 09:37 DL Document 06/13/24 10:02 DL [email or web address] 06/13/24 10:02 DL 05/23/24 05/30/24 06/06/24 10:58 09:57 09:36 Wound Care Center Nurse 3 #1- R ABDOMEN -Ulcer Cleansing Soap and Water Rinsed/ Irrigated with Saline -Foul Odor after Cleansing No -Negative Pressure Wound Therapy Continue -Setting (mmHg) 150 -Primary Dressing Applied Hysept ($) -Other Dressing dakins -Primary Dressing Covered/Secured with Dry Gauze, Dry Gauze, Secured with Secured with Tape Tape -NPWT Application Charge NPWT & Debridement (nc ) -Aquacel AG 4x4 -Wound Comment(s) vac discontinued today. Treatment Response Procedure Tolerated Well Pain Scale: 0-10 Numeric Is Patient Pain Free? Yes Yes Yes WC - Visit Discharge Discharge Condition Stable Stable Stable Ambulatory Status Ambulatory Ambulatory Ambulatory Transportation Private Auto Private Auto Private Auto Accompanied by Medication Reconcilliation completed & No No provided to patient/care provider Clinical Summary of Care Provided Yes Yes 06/13/24 10:02 Wound Care Center Nurse 3 #1- R ABDOMEN -Ulcer Cleansing Rinsed/ Irrigated with Saline -Foul Odor after Cleansing No -Negative Pressure Wound Therapy -Setting (mmHg) -Primary Dressing Applied Aquacel AG 4x4 -Other Dressing -Primary Dressing Covered/Secured with Dry Gauze, Secured with Tape -NPWT Application Charge -Aquacel AG 4x4 2 -Wound Comment(s) Treatment Response Procedure Tolerated Well Pain Scale: 0-10 Numeric Is Patient Pain Free? 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 Wound care - Stop Dakin's 0.25% and start Aquacel-Ag (name brand only) wicked into tunnel and base of ulcer daily. Top with gauze or ABD. Wash ulcer and luzma wound with soap and water at the time of the dressing changes. Wound culture from 05/04/24 positive for Staphylococcus aureus he was treated with Augmentin. Wound culture obtained 06/06/24 which was positive for Staphylococcus aureus. He was started on Augmentin at the time the culture was obtained. He is to continue the Augmentin, which a refill was sent in. Patient saw Dr. Mclain, general surgeon last week, he was referred by his PCP. He saw him last week and Dr. Mclain stated that he does not think that Collin needs any surgical intervention at this time and to continue to wound care. He did order a CT scan. He states that he believes some of the healing issues is that there may be sutures that still need to dissolve and it can take 6-8 months for that to occur and that Collin's body is treating it like a foreign body. Dr. Mclain did remove some of the more superficial sutures. We are discontinuing home health at this time. Follow up one week.
--- NOTE | 2024-06-15 09:45 | WC ---
PHOTO RIGHT ABD 06/06/24
--- NOTE | 2024-06-15 11:46 | WC ---
photo 05/30/24 RIGHT ABD
== END 2024-06-15 23:59 | disposition home or self-care (01) ==
LOC: WC 09:15
PROVIDERS: PCP Internal Medicine; Referring Provider Internal Medicine; Visit Provider Nurse Practitioner Family
DX: L98.492 Non-pressure chronic ulcer of skin of other sites with fat layer exposed (principal); D35.01 Benign neoplasm of right adrenal gland; E89.822 Postprocedural seroma of an endocrine system organ or structure following an endocrine system procedure
CPT/HCPCS: 11042; 11043; 87070; 87077; 87186; 87205

== ENCOUNTER 2024-07-06 15:15 | Outpatient (RCR) | payer OTHER, SELFPAY ==
[2024-06-16 00:49] VITALS: BP 103/67; PULSE 65; RESP 16; TEMP 36.8; BMI 22.6
[2024-06-22 15:48] VITALS: BP 98/56; PULSE 53; TEMP 36.2; BMI 22.6
--- NOTE | 2024-06-22 16:26 | PCM.WC.PN ---
History of Present Illness Date of Service: 06/22/24 Chief Complaint: Right abdomen wound after surgery History of Wound: 38 year old male presents with right lateral abdomen wound after surgery 03/15/24 for Pheochromocytoma at [facility] by Dr. Toure. He developed a seroma after surgery, ended admitted to [place] and then transferred to [facility] where they took him back to surgery to evacuate the seroma. He was discharged home a week ago on Doxycycline antibiotics, with home health to help with his saline wet to dry dressings. Home health recommended he come into the wound center. Patient states that he does not have a follow up with the surgeon. History of high blood pressure and cardiac issues which were related to his Pheochromocytoma. He had been having elevated blood pressure episodes periodically for about 2 years. In January 2024, his symptoms worsened along with chest pain and heart arrhythmias. That was when the mass was an incidental finding on chest imaging. Today he denies fever, chills, nausea or vomiting. Progress of Wound: Ulcer is smaller this week and the tunnel is getting smaller. Base of the ulcer is beefy pink. Some of the remaining sutures are starting to fall out. The tunnel is getting difficult to pack with the Silver dressing because it is falling apart. Objective Data Objective Data Vital Signs: Vital Signs Temp Pulse Resp BP O2 Del Method 97.1 F L 53 L 16 98/56 L Room Air 06/22/24 15:48 06/22/24 15:48 06/16/24 00:49 06/22/24 15:48 06/22/24 15:48 Oxygen Delivery Method Room Air Weight: 175 lb 12.943 oz Body Mass Index (BMI) 22.6 Charges/Coding Procedures Integumentary 111xxx-113xx: 95563 Virginie subq tissue 20 sq cm/< Debridement Note Debridement Note Wound debrided: lateral abdomen ulcer Laterality: Right Wound Grade/Stage: Grade 3 Type of Debridement: Excisional debridement Anesthesia Used: 5% Lidocaine Gel Depth: Down to and including healthy tissue and in the subcutaneous layer Percentage of wound debrided: 100 Instrument Used: 5mm curette Tissue Removed: Non viable tissue and slough Severity: Fat Layer Exposed Amount of bleeding with debridement: Mild Bleeding Controlled with: Compression and gauze Patient tolerated procedure: Patient tolerated procedure well Debridement Free Text: Non viable tissue and and slough removed. Post-Debridement Measurements and Additional Note: Post-Debridement Measurements/Treatment JUAN CARLOS - Nurse 1 - General Ulcer Assessment Start: 06/22/24 15:48 Freq: Status: Active Protocol: REHANA Activity Type Activity Date Activity User E-sign Co-sign Detail Recorded Client Recorded Date Recorded By Document 06/22/24 15:48 DS 1 06/22/24 15:49 DS 06/22/24 15:48 WC - Today's Visit Information Type of service Follow-up Visit (Physician/BUTTONER ) Arrival Mode Ambulatory Safety Precautions Fall Prevention Height and Weight Body Mass Index (BMI) 22.6 BMI Classification Normal Vital Signs Temperature (97.8 F-99.1 F) 97.1 F L Temperature Source Temporal Pulse Rate (60-100) 53 L Pulse Location Monitor Respiratory rate source Observation Oxygen Delivery Method Room Air Blood Pressure (90/60-120/80) 98/56 L Blood Pressure Mean (mm Hg) 70 Source Monitor Position Sitting Blood Pressure Location Right Arm History Since Last Visit- (Skip if this is Patient's initial visit) Have you changed medications since your No last visit? Any new allergies or adverse reactions No Had a fall/change in ADL's that may No increase risk of falls Signs or symptoms of abuse and/or No neglect since last visit Have you been in the hospital since your No last visit? Has dressing in place as prescribed Yes Has compression in place as prescribed N/A Has offloadiing in place as prescribed N/A Experienced any changes in pain level or No management Left Footwear Regular Shoe Right Footwear Regular Shoe Pain Scale: 0-10 Numeric Is Patient Pain Free? Yes JUAN CARLOS - Nurse 1 - General Ulcer Measurement Start: 06/22/24 15:48 Freq: Status: Active Protocol: Activity Type Activity Date Activity User E-sign Co-sign Detail Recorded Client Recorded Date Recorded By Document 06/22/24 15:49 DS 1 06/22/24 15:58 DS 06/22/24 15:49 Wound Center Nurse 1 #1- R ABDOMEN -Current Size (cm) - Length 1.1 -Current Size (cm) - Width 2.5 -Current Size (cm) - Depth 1.4 -Total Square Cm 2.75 -Photo Taken No -Tunneling Position (O'clock) 1 -Tunneling Distance (cm) 1.0 -Wound Margin Distinct, Outline Attached -Necrosis Amt Large (67-100%) -Necrotic Tissue Type Adherent Slough -Texture (Luzma-wound Skin Appearance) Assessed -Moisture (Luzma-wound Skin Appearance) Assessed -Color (Luzma-wound Skin Appearance) Assessed -Temperature (Luzma-wound Skin No Abnormality Appearance) (Pt Warm) -Tenderness on Palpation (Luzma-wound No Skin Appearance) -Ulcer Cleansing Soap and Water -Anesthetic Used 5% Lidocaine Gel - Nurse 2 - General Ulcer CM Notes Start: 06/22/24 15:48 Freq: Status: Active Protocol: Activity Type Activity Date Activity User E-sign Co-sign Detail Recorded Client Recorded Date Recorded By Document 06/22/24 16:21 [facility] 06/22/24 16:22 06/22/24 16:21 Wound Center Nurse 2 -Time 16:21 -Correct Patient Yes -Correct Side, Site, Position Yes -Correct Procedure Yes -Procedure Performed Yes -Type of Procedure Debridement -Clinical Debridement Subcutaneous -Tissue Removed Subcutaneous -Post Debridement (cm) - Length 1.3 -Post Debridement (cm) - Width 2.5 -Post Debridement (cm) - Depth 0.5 -Total Square (Post) (cm) 3.25 -Area of Debridement (cm) - Length 1.3 -Area of Debridement (cm) - Width 2.5 -Total Square (Area) (cm) 3.25 -Tunneling Yes -Tunneling Position (O'clock) 2 -Tunneling Distance (cm) 3.7 -Undermining/Tunneling No -Circular Undermining No -Wound/Ulcer Outcome Not Healed -Ulcer Cleansing Not Cleansed -Foul Odor after Cleansing No -Bleeding Controlled with Pressure -Treatment Response Procedure Tolerated Well -Debridement - Subq, 1st 20sq cm Yes Pain Scale: 0-10 Numeric Is Patient Pain Free? Yes Assessment/Plan Assessment/Plan (1) Ulcer of abdomen wall with fat layer exposed: CODE(S): L98.492 - Non-pressure chronic ulcer of skin of other sites with fat layer exposed (2) Pheochromocytoma of right adrenal gland: CODE(S): D35.01 - Benign neoplasm of right adrenal gland PLAN: Plan Patient evaluated at the wound healing center. Wound care - Dakin's 0.25% moistened gauze to the tunnel only and Aquacel-Ag (name brand only) to the base of ulcer daily. Top with gauze or ABD. Wash ulcer and luzma wound with soap and water at the time of the dressing changes. Wound culture from 05/04/24 positive for Staphylococcus aureus he was treated with Augmentin. Wound culture obtained 06/06/24 which was positive for Staphylococcus aureus. He was started on Augmentin at the time the culture was obtained. He is to continue the Augmentin, which a refill was sent in. Patient saw Dr. Mclain, general surgeon a few weeks ago, he was referred by his PCP. He saw him last week and Dr. Mclain stated that he does not think that Collin needs any surgical intervention at this time and to continue to wound care. He did order a CT scan. He states that he believes some of the healing issues is that there may be sutures that still need to dissolve and it can take 6-8 months for that to occur and that Collin's body is treating it like a foreign body. Dr. Mclain did remove some of the more superficial sutures. Follow up two weeks.
[2024-07-06 15:22] VITALS: BP 114/67; PULSE 64; RESP 18; TEMP 35.9; BMI 22.6
--- NOTE | 2024-07-06 16:49 | PN.PCM_ITS ---
History of Present Illness Date of Service: 07/06/24 Chief Complaint: Right abdomen wound after surgery History of Wound: 38 year old male presents with right lateral abdomen wound after surgery 03/15/24 for Pheochromocytoma at [facility] by Dr. Toure. He developed a seroma after surgery, ended admitted to [place] and then transferred to [facility] where they took him back to surgery to evacuate the seroma. He was discharged home a week ago on Doxycycline antibiotics, with home health to help with his saline wet to dry dressings. Home health recommended he come into the wound center. Patient states that he does not have a follow up with the surgeon. History of high blood pressure and cardiac issues which were related to his Pheochromocytoma. He had been having elevated blood pressure episodes periodically for about 2 years. In January 2024, his symptoms worsened along with chest pain and heart arrhythmias. That was when the mass was an incidental finding on chest imaging. Today he denies fever, chills, nausea or vomiting. Progress of Wound: Ulcer is smaller this week the tunnel has resolved. Base of the ulcer is beefy pink but still fibrous. The ulcer opening is indented compared to the rest of the scar. Will continue to monitor this. Objective Data Objective Data Vital Signs: Vital Signs Temp Pulse Resp BP O2 Del Method 96.7 F L 64 18 114/67 Room Air 07/06/24 15:22 07/06/24 15:22 07/06/24 15:22 07/06/24 15:22 07/06/24 15:22 Oxygen Delivery Method Room Air Weight: 175 lb 12.943 oz Body Mass Index (BMI) 22.6 Charges/Coding Procedures Integumentary 111xxx-113xx: 70660 Virginie subq tissue 20 sq cm/< Debridement Note Debridement Note Wound debrided: lateral abdomen ulcer Laterality: Right Wound Grade/Stage: Grade 3 Type of Debridement: Excisional debridement Anesthesia Used: 5% Lidocaine Gel Depth: Down to and including healthy tissue and in the subcutaneous layer Percentage of wound debrided: 100 Instrument Used: 5mm curette Tissue Removed: Non viable tissue and slough Severity: Fat Layer Exposed Amount of bleeding with debridement: Mild Bleeding Controlled with: Compression and gauze Patient tolerated procedure: Patient tolerated procedure well Debridement Free Text: Non viable tissue and and slough removed. Post-Debridement Measurements and Additional Note: Post-Debridement Measurements/Treatment WC - Nurse 1 - General Ulcer Assessment Start: 06/22/24 15:48 Freq: Status: Active Protocol: REHANA Activity Type Activity Date Activity User E-sign Co-sign Detail Recorded Client Recorded Date Recorded By Document 06/22/24 15:48 DS 1 06/22/24 15:49 DS Document 07/06/24 15:22 [id number] 07/06/24 15:26 KW 06/22/24 07/06/24 15:48 15:22 WC - Today's Visit Information Type of service Follow-up Visit Follow-up Visit (Physician/INCOME TAX EXPERT (Physician/INCOME TAX EXPERT ) ) Arrival Mode Ambulatory Ambulatory Patient Identification Verified (Name & Yes ) Safety Precautions Fall Prevention Height and Weight Body Mass Index (BMI) 22.6 22.6 BMI Classification Normal Normal Vital Signs Temperature (97.8 F-99.1 F) 97.1 F L 96.7 F L Temperature Source Temporal Temporal Pulse Rate (60-100) 53 L 64 Pulse Location Monitor Monitor Respiratory Rate (12-18) 18 Respiratory rate source Observation Observation Oxygen Delivery Method Room Air Room Air Blood Pressure (90/60-120/80) 98/56 L 114/67 Blood Pressure Mean (mm Hg) 70 82 Source Monitor Monitor Position Sitting Sitting Blood Pressure Location Right Arm Left Forearm History Since Last Visit- (Skip if this is Patient's initial visit) Have you changed medications since your No No last visit? Any new allergies or adverse reactions No No Had a fall/change in ADL's that may No No increase risk of falls Signs or symptoms of abuse and/or No No neglect since last visit Have you been in the hospital since your No No last visit? Has dressing in place as prescribed Yes Yes Has compression in place as prescribed N/A N/A Has offloadiing in place as prescribed N/A N/A Experienced any changes in pain level or No No management Left Footwear Regular Shoe Regular Shoe Right Footwear Regular Shoe Regular Shoe Pain Scale: 0-10 Numeric Is Patient Pain Free? Yes Yes - Nurse 1 - General Ulcer Measurement Start: 06/22/24 15:48 Freq: Status: Active Protocol: Activity Type Activity Date Activity User E-sign Co-sign Detail Recorded Client Recorded Date Recorded By Document 06/22/24 15:49 DS 1 06/22/24 15:58 DS Document 07/06/24 15:22 [email or web address] [id number] 07/06/24 15:26 06/22/24 07/06/24 15:49 15:22 Wound Center Nurse 1 #1- R ABDOMEN -Current Size (cm) - Length 1.1 0.6 -Current Size (cm) - Width 2.5 1.9 -Current Size (cm) - Depth 1.4 0.8 -Total Square Cm 2.75 1.14 -Date of Last Picture (Recall this 07/06/24 field) -Photo Taken No -Tunneling Position (O'clock) 1 -Tunneling Distance (cm) 1.0 -Exudate Amt Small -Exudate Type Serosanguineous -Wound Margin Distinct, Thickened & Outline Rolled Under Attached -Granulation Amt Medium (34-66%) -Granulation Quality [place] -Necrosis Amt Large (67-100%) Medium (34-66%) -Necrotic Tissue Type Adherent Slough Adherent Slough -Texture (Luzma-wound Skin Appearance) Assessed Assessed, Scarring -Moisture (Luzma-wound Skin Appearance) Assessed Assessed -Color (Luzma-wound Skin Appearance) Assessed Assessed -Temperature (Luzma-wound Skin No Abnormality No Abnormality Appearance) (Pt Warm) (Pt Warm) -Tenderness on Palpation (Luzma-wound No No Skin Appearance) -Ulcer Cleansing Soap and Water Rinsed/ Irrigated with Saline -Foul Odor after Cleansing No -Anesthetic Used 5% Lidocaine 5% Lidocaine Gel Gel - Nurse 2 - General Ulcer CM Notes Start: 06/22/24 15:48 Freq: Status: Active Protocol: Activity Type Activity Date Activity User E-sign Co-sign Detail Recorded Client Recorded Date Recorded By Document 06/22/24 16:21 [facility] 06/22/24 16:22 Document 07/06/24 15:57 [id number] 07/06/24 16:00 06/22/24 07/06/24 16:21 15:57 Wound Center Nurse 2 #1- R ABDOMEN -Time 16:21 15:57 -Correct Patient Yes Yes -Correct Side, Site, Position Yes Yes -Correct Procedure Yes Yes -Procedure Performed Yes Yes -Type of Procedure Debridement Debridement -Clinical Debridement Subcutaneous Subcutaneous -Tissue Removed Subcutaneous Subcutaneous -Post Debridement (cm) - Length 1.3 1.0 -Post Debridement (cm) - Width 2.5 1.9 -Post Debridement (cm) - Depth 0.5 0.4 -Total Square (Post) (cm) 3.25 1.90 -Area of Debridement (cm) - Length 1.3 1.0 -Area of Debridement (cm) - Width 2.5 1.9 -Total Square (Area) (cm) 3.25 1.90 -Tunneling Yes Yes -Tunneling Position (O'clock) 2 -Tunneling Distance (cm) 3.7 -Undermining/Tunneling No Yes -Circular Undermining No Yes -Wound/Ulcer Outcome Not Healed Not Healed -Ulcer Cleansing Not Cleansed Rinsed/ Irrigated with Saline -Foul Odor after Cleansing No No -Bioengineered Tissue No -Bleeding Controlled with Pressure Pressure -Treatment Response Procedure Procedure Tolerated Well Tolerated Well -Debridement - Subq, 1st 20sq cm Yes Yes Pain Scale: 0-10 Numeric Is Patient Pain Free? Yes Yes - Nurse 3 - General Ulcer D/C NN Start: 06/22/24 15:48 Freq: Status: Active Protocol: Activity Type Activity Date Activity User E-sign Co-sign Detail Recorded Client Recorded Date Recorded By Document 06/22/24 16:39 RB wound 06/22/24 16:40 RB Document 07/06/24 16:10 RB [id number] 07/06/24 16:11 RB 06/22/24 07/06/24 16:39 16:10 Wound Care Center Nurse 3 #1- R ABDOMEN -Ulcer Cleansing Rinsed/ Irrigated with Saline -Primary Dressing Applied Aquacel AG 4x4 Aquacel AG 4x4 -Other Dressing dakins moistened gauze in tunnel then aquacel ag to wound base -Primary Dressing Covered/Secured with Dry Gauze, Dry Gauze, Secured with Secured with Tape Tape -Aquacel AG 4x4 1 1 Treatment Response Procedure Procedure Tolerated Well Tolerated Well Pain Scale: 0-10 Numeric Is Patient Pain Free? Yes Yes WC - Visit Discharge Discharge Condition Stable Stable Ambulatory Status Ambulatory Ambulatory Transportation Private Auto Private Auto Medication Reconcilliation completed & No No provided to patient/care provider Clinical Summary of Care Provided Yes Yes Assessment/Plan Assessment/Plan (1) Ulcer of abdomen wall with fat layer exposed: CODE(S): L98.492 - Non-pressure chronic ulcer of skin of other sites with fat layer exposed (2) Pheochromocytoma of right adrenal gland: CODE(S): D35.01 - Benign neoplasm of right adrenal gland PLAN: Plan Patient evaluated at the wound healing center. Wound care - Change to Aquacel-Ag daily topped with fluffed gauze and ABD. Wash ulcer and luzma wound with soap and water at the time of the dressing changes. Wound culture from 05/04/24 positive for Staphylococcus aureus he was treated with Augmentin. Wound culture obtained 06/06/24 which was positive for Staphylococcus aureus. He was started on Augmentin at the time the culture was obtained. He is to continue the Augmentin, which a refill was sent in. Patient saw Dr. Mclain, general surgeon a few weeks ago, he was referred by his PCP. He saw him last week and Dr. Mclain stated that he does not think that Collin needs any surgical intervention at this time and to continue to wound care. He did order a CT scan. He states that he believes some of the healing issues is that there may be sutures that still need to dissolve and it can take 6-8 months for that to occur and that Collin's body is treating it like a foreign body. Dr. Mclain did remove some of the more superficial sutures. Depending on the way the scarring heals, he may have significant puckering/indentation on the most lateral portion of the incision. Will continue to monitor it closely. Follow up two weeks.
--- NOTE | 2024-07-07 14:13 | WC ---
PHOTO 07/06/24 RIGHT ABD
== END 2024-07-16 23:59 | disposition home or self-care (01) ==
LOC: WC 15:15
PROVIDERS: PCP Internal Medicine; Referring Provider Internal Medicine; Visit Provider Nurse Practitioner Family
DX: L98.492 Non-pressure chronic ulcer of skin of other sites with fat layer exposed (principal); D35.01 Benign neoplasm of right adrenal gland
CPT/HCPCS: 11042

== ENCOUNTER 2024-08-03 15:00 | Outpatient (RCR) | payer OTHER, SELFPAY ==
[2024-07-17 00:27] VITALS: BP 103/67; PULSE 65; RESP 16; TEMP 36.8; BMI 22.6
[2024-07-20 14:50] VITALS: BP 123/63; PULSE 64; RESP 16; TEMP 36.3; BMI 22.6
[2024-08-03 14:56] VITALS: BP 108/66; PULSE 53; RESP 18; TEMP 36.8; BMI 22.6
== END 2024-08-15 23:59 | disposition home or self-care (01) ==
LOC: WC 15:00
PROVIDERS: PCP Internal Medicine; Referring Provider Internal Medicine; Visit Provider Nurse Practitioner Family
DX: L98.492 Non-pressure chronic ulcer of skin of other sites with fat layer exposed (principal); D35.01 Benign neoplasm of right adrenal gland
CPT/HCPCS: 11042

== ENCOUNTER 2024-08-24 14:46 | Outpatient (RCR) | payer OTHER, SELFPAY ==
[2024-08-16 00:38] VITALS: BP 103/67; PULSE 65; RESP 16; TEMP 36.8; BMI 22.6
[2024-08-24 15:10] VITALS: BP 123/73; PULSE 66; RESP 20; TEMP 36.6; BMI 22.6
--- NOTE | 2024-08-24 15:45 | PN.PCM_ITS ---
History of Present Illness Date of Service: 08/24/24 Chief Complaint: Right abdomen wound after surgery History of Wound: 38 year old male presents with right lateral abdomen wound after surgery 03/15/24 for Pheochromocytoma at [facility] by Dr. Toure. He developed a seroma after surgery, ended admitted to [place] and then transferred to [facility] where they took him back to surgery to evacuate the seroma. He was discharged home a week ago on Doxycycline antibiotics, with home health to help with his saline wet to dry dressings. Home health recommended he come into the wound center. Patient states that he does not have a follow up with the surgeon. History of high blood pressure and cardiac issues which were related to his Pheochromocytoma. He had been having elevated blood pressure episodes periodically for about 2 years. In January 2024, his symptoms worsened along with chest pain and heart arrhythmias. That was when the mass was an incidental finding on chest imaging. Today he denies fever, chills, nausea or vomiting. Progress of Wound: Patient is doing well this week. Ulcer is healed this week. There continues to be an indentation/contour deformity to this area with some depth. Instructed to keep area clean and dry. Make sure to swab it out with cotton swab applicator after showering to keep area dry and prevent maceration. Objective Data Objective Data Vital Signs: Vital Signs Temp Pulse Resp BP 98 F 66 20 H 123/73 H 08/24/24 15:10 08/24/24 15:10 08/24/24 15:10 08/24/24 15:10 Weight: 175 lb 12.943 oz Body Mass Index (BMI) 22.6 Charges/Coding Visit Charges Office Visits / Consults: 84067 OV L3 Est 20min Physical Exam Const alert, oriented x3, no apparent distress and average body habitus HEENT normocephalic Head and Scalp: atraumatic Eyes General Eye: normal appearance of both eyes Neck full ROM Lymph Lymphatic: no lymphedema noted Resp normal respiratory effort and normal air movement Effort and Inspection: able to speak in complete sentences Cardio regular rate GI soft to palpation Back/Spine normal ROM Extremity normal to inspection, full ROM and normal capillary refill Skin Wound Narrative: Right lateral abdomen ulcer has healed. There continues to be an indentation/contour deformity to the lateral aspect of the scarring with some depth. Instructed to keep area clean and dry. Make sure to swab it out with cotton swab applicator after showering to keep area dry and prevent maceration. Neuro oriented x3 Psych mental status grossly normal, thought process normal and cooperative Appearance: grossly normal Debridement Note Debridement Note No debridement was completed: No debridement was completed today Post-Debridement Measurements and Additional Note: Post-Debridement Measurements/Treatment WC - Nurse 1 - General Ulcer Assessment Start: 08/24/24 15:09 Freq: Status: Active Protocol: REHANA Activity Type Activity Date Activity User E-sign Co-sign Detail Recorded Client Recorded Date Recorded By Document 08/24/24 15:10 DL [id number] 08/24/24 15:16 DL 08/24/24 15:10 WC - Today's Visit Information Type of service Follow-up Visit (Physician/AUDITOR INTERNAL ) Arrival Mode Ambulatory Transfer Assistance None Patient Identification Verified (Name & Yes ) Patient Requires Transmission-Based No Precautions Height and Weight Body Mass Index (BMI) 22.6 BMI Classification Normal Vital Signs Temperature (97.8 F-99.1 F) 98 F Temperature Source Temporal Pulse Rate (60-100) 66 Pulse Location Monitor Respiratory Rate (12-18) 20 H Respiratory rate source Observation Blood Pressure (90/60-120/80) 123/73 H Blood Pressure Mean (mm Hg) 89 Source Monitor History Since Last Visit- (Skip if this is Patient's initial visit) Have you changed medications since your No last visit? Any new allergies or adverse reactions No Had a fall/change in ADL's that may No increase risk of falls Signs or symptoms of abuse and/or No neglect since last visit Have you been in the hospital since your No last visit? Has dressing in place as prescribed Yes Has compression in place as prescribed N/A Has offloadiing in place as prescribed N/A Experienced any changes in pain level or No management Pain Scale: 0-10 Numeric Is Patient Pain Free? Yes - Nurse 1 - General Ulcer Measurement Start: 08/24/24 15:09 Freq: Status: Active Protocol: Activity Type Activity Date Activity User E-sign Co-sign Detail Recorded Client Recorded Date Recorded By Document 08/24/24 15:10 DL [id number] 08/24/24 15:16 DL 08/24/24 15:10 Wound Center Nurse 1 #1- R ABDOMEN -Current Size (cm) - Length 0.1 -Current Size (cm) - Width 0.1 -Current Size (cm) - Depth 0.1 -Total Square Cm 0.01 -Exudate Amt None Present -Wound Margin Thickened & Rolled Under -Granulation Amt Large (67-100%) -Granulation Quality [place] -Necrosis Amt None Present (0 %) -Structure Exposed N/A -Texture (Luzma-wound Skin Appearance) Scarring -Moisture (Luzma-wound Skin Appearance) No Abnormality -Color (Luzma-wound Skin Appearance) No Abnormality -Temperature (Luzma-wound Skin No Abnormality Appearance) (Pt Warm) -Ulcer Cleansing Rinsed/ Irrigated with Saline -Foul Odor after Cleansing No -Anesthetic Used 5% Lidocaine Gel - Nurse 2 - General Ulcer CM Notes Start: 08/24/24 15:09 Freq: Status: Active Protocol: Activity Type Activity Date Activity User E-sign Co-sign Detail Recorded Client Recorded Date Recorded By Document 08/24/24 15:28 [id number] 08/24/24 15:29 08/24/24 15:28 Wound Center Nurse 2 -Time 15:28 -Correct Patient Yes -Correct Side, Site, Position Yes -Wound/Ulcer Outcome Healed- Epithelialized Pain Scale: 0-10 Numeric Is Patient Pain Free? Yes - Nurse 3 - General Ulcer D/C NN Start: 08/24/24 15:09 Freq: Status: Active Protocol: Activity Type Activity Date Activity User E-sign Co-sign Detail Recorded Client Recorded Date Recorded By Document 08/24/24 15:29 [id number] 08/24/24 15:29 08/24/24 15:29 Is Patient Pain Free? 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 Ulcer is healed. Ulcer is healed this week. There continues to be an indentation/contour deformity to this area with some depth. Instructed to keep area clean and dry. Make sure to swab it out with cotton swab applicator after showering to keep area dry and prevent maceration. Demonstrated how to massage the healed scarring to help soften it. Discussed with him about having scar revision in the future, especially with the indented area (it is like a second umbilicus). He is not ready to discuss surgery right now due to how long it has taken him to heal. It is good to allow scarring to continue to heal for several more months to see if massaging can help with softening the scarring and decreasing the depth of the indentation. He can follow up as needed.
== END 2024-08-24 15:00 | disposition home or self-care (01) ==
LOC: WC 14:46
PROVIDERS: PCP Internal Medicine; Referring Provider Internal Medicine; Visit Provider Nurse Practitioner Family
DX: L98.492 Non-pressure chronic ulcer of skin of other sites with fat layer exposed (principal); D35.01 Benign neoplasm of right adrenal gland
CPT/HCPCS: 99213; G0463

== ENCOUNTER 2025-09-13 08:00 | Outpatient (RCR) | payer OTHER, SELFPAY ==
--- NOTE | 2025-08-30 14:56 | HP.OTEVAL ---
Patient's Visit Information Visit Information Visit Information: AUGIE SAENZ is a 40 year old M, referred to Occupational Therapy by DESHAWN Monsalve, with a diagnosis of right thumb laceration. Date of Evaluation: 08/30/25 Occupational Therapist: Reina Stevenson, OTR/Marek, CHT Subjective Subjective: This 40 male was seen for OT eval with dx of thumb pain /stiffness due injury sustained on 08/13/25. pt arrives today with limited ROM and inability to use right thumb with ADLs. Pt is 2 weeks and 3 days from DOI. 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 Calabrese but still wants to do anything he can to ensure he gets full use of his right dominate hand back to his PLOF. Pain right thumb: Current Pain Intensity: 1 Pain Intensity Range: 3 ROM CMC: right 10 left 15 MP: right 50 left 35 IP: right 70 left 90 Strength Supervisor Cell Maintenance: right NT left 90 Lateral Pinch: right NT left 20# Tripod Pinch: right NT left 18# Sensation Sensation Comments: denies Quick DASH-Disab of Arm,Shoulder& Hand Quick DASH Score: 48.3325 Goals Goal:Daily scar massage when approriate: Yes Goal:ROM equal to unaffected hand: Yes Goal:Supervisor Cell Maintenance/Pinch strength at least 75% of unaffected hand: Yes Comment: will initiate when released by Dr. Calabrese Goal:No pain with affected hand use: Yes Goal:Full use of affected hand in daily activities including work: Yes Rehabilitation General Assessment: DOI 08/13/25 pt arrives two weeks and 3 days from DOI. pt demo with healing incision demo with improved ROM since he saw Dr. Calabrese. Pt is still limited with use of right hand due to newly healing structures. pt would benefit from skilled OT services 1x week for 4 weeks to return pt to his PLOF. Today therapist ed. pt on AROM, AAROM and scar mtg. Pt demo understanding and agree to POC. Rehabilitation Potential: Good Anticipated Interventions Anticipated Interventions: A/AAROM/PROM, Strengthening, Scar Care, Triggerpoint Release, Modalities, Orthoses, Joint Protection/Energy Conservation, Ergonomic Education, Fine Motor Coord/Ilan, Education re assistive Equipment, Education re Diagnosis and Home Program Visit Plan Frequency: 1x/Week Duration: 4 Weeks TEXT: Thank you for the opportunity to evaluate your patient. For Medicare and Medicare HMO plans, please review the plan of care and approve it. It will need to be FAXED BACK to us at [phone] for Medicare purposes. Please let me know if there are questions or concerns regarding this plan of care. Physician Signature: Date:
--- NOTE | 2025-09-13 08:09 | HP.OTDCSUM_ITS ---
Discharge Summary D/C Summary: It has been my pleasure to treat AUGIE SAENZ under orders from DESHAWN Monsalve, for the diagnosis of right thumb laceration for a total of 2 visit(s). Please see the following information for a summary of their discharge status. Overall Improvement % Improvement: 80 Objective Objective/Function: right RA 50 Right PA Normal CMC 10 MP 45 IP 80 right director business development strength 95# right lateral pinch 10# right tripod pinch 10# therapist ed. pt on thumb stabilization ex. to perform daily for next 3-6 weeks- pt demo understanding and agrees with D/C. Goals Patient Goals: Return to Work, Use Hand/Wrist/Arm Normally Again and Be More Independent in ADLS Goal:Daily scar massage when approriate: Yes Goal Progress: Goal Met Goal:ROM equal to unaffected hand: Yes Goal Progress: Goal Met Goal:Radiology Equipment Servicer/Pinch strength at least 75% of unaffected hand: Yes Goal Progress: Goal Met Goal:No pain with affected hand use: Yes Goal Progress: Goal Met Goal:Full use of affected hand in daily activities including work: Yes Goal Progress: Goal Met Plan Plan: D/C D/C Information Discharge Comments: pt made significate progress and at this time has met OT goals and is d/c with HEP for scar mtg and cont. thumb stabilization ex. pt agrees with d/c d/c sentence: If there are questions or concerns regarding this patient's occupational therapy, please fell free to call me at [phone]. Thank you for the referral of this patient. Sincerely, Reina Stevenson, OTR/L, CHT
== END 2025-09-13 19:00 | disposition home or self-care (01) ==
LOC: OT 08:00
PROVIDERS: PCP Internal Medicine; Referring Provider Physician Assistant; Visit Provider Physician Assistant
DX: S61.411D Laceration without foreign body of right hand, subsequent encounter (principal); M25.649 Stiffness of unspecified hand, not elsewhere classified
CPT/HCPCS: 97166; 97530

== ENCOUNTER 2025-11-08 11:30 | Outpatient (RCR) | payer OTHER, SELFPAY ==
--- NOTE | 2025-10-11 15:34 | HP.PTEVAL ---
Patient's Visit Information Visit Information Visit Information: AUGIE SAENZ is a 40 year old M referred to Physical Therapy by Dr. Deven Girard MD with a diagnosis of FRACTURE OF OCCIPITAL CONDYLE. Date of Evaluation: 10/11/25 Physical Therapist: Yane Yan PT, Cert MDT Visit Plan Frequency: 2x /Week Duration: 4-6 Weeks Plan: CERVICAL ROM AND STRENGTHENING. ANY SHARP PAINS PATIENT IS TO GO TO ED AND HAVE CAT SCAN. START STRENGTHENING WITH [employer]MAX ISOMETRICS ALL PLANES (SEE TA ABOVE FOR TODAYS TREATMENT). POSTURE CORRECTION/STRENGTHENING. SCAPULAR STRENGTH AND STABILITY EX. INSTRUCTION IN APPROPRIATE WORK STATION ERGONOMICS FOR RETURN TO WORK. UPPER TRAP/CERVICAL MUSCULATURE STM NEEDED HEP INSTRUCTION. 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 OFF WORK SINCE 08/13/25 (DOI) WITH TENTATIVE RTW DATE OF 10/16/25. LIKES TO [place], FISH AND HIKE. Present symptoms: GEETHA NECK PAIN L>R ESPECIALLY CLOSE TO BASE OF SKULL BUT ALSO DOWN TO SHOULDERS. NECK ALSO GETS TIRED. Occasional CASAS'S. NO SHARP PAINS. NO NUMBNESS OR TINGLING. Present since: 08/13/25. Getting Better, Getting Worse or Staying the Same: GETTING BETTER Pain Scale: Worst - 4/10 Least - 1/10 Currently: 11/25 Commenced as a result of: PASSED OUT FELL DOWN A HILL INTO A DECK RESULTING IN EVULSION FX C1 Worse: TRYING TO SLEEP AT NIGHT, RUNNING SCORE BOARD, LOOKING DOWN, EXTREME NECK ROM Better: ADVIL, BIOFREEZE, KEEPING HEAD FACING FORWARD, SITTING IN RECLINER WITH POWER HEAD REST Disturbed sleep: *YES - MAIN PROBLEM. STARTED TRYING TO SLEEP IN BED 10/03/25. DID OK 1-2 NIGHTS AND HASN'T BEEN BACK IN BED SINCE. Previous history/Previous treatment: UNREMARKABLE This episode: NECK COLLAR X ~7 WKS. TOOK COLLAR OFF 10/03/25 AND HASN'T USED IT SINCE. HASN'T TURNED NECK MUCH UNTIL THURSDAY. Dizziness: NO Tinnitus: NO Nausea: NO Shortness of Breath: NO Difficulty Swallowing: NO Gait: NORMAL Imaging: NO INSTABILITY ON X-RAYS 10/03/[address] GIRARD. PMH: Thumb joint stiffness Fracture of occipital condyle Laceration of right hand Adrenal mass, right Pheochromocytoma of right adrenal gland Objective Objective: Sitting Posture/Standing Posture: MILD FH. L SHLD LEVEL LOWER THAN R. R HAND DOMINANT. H/O GEETHA SHLD SEPERATIONS (L X 2). Active Correction of posture: GOOD. Other Observations: INDEP GAIT AND TRANSFERS. PLEASANT AND COOPERATIVE TO WORK WITH. Sensory deficit: GEETHA UE LIGHT TOUCH SENSATION INTACT AND SYMMETRICAL ROM deficit: GEETHA UE'S WFL'S. Motor deficit: GEETHA SHLD'S GROSSLY 4/5, OTHERWISE 5/5. R CHECK CASHIER 104 LBS, L 94 LBS. Dural Signs: NEGATIVE GEETHA UE'S. Cervical Mvmt Loss: Flex: MIN Pro: NIL Ext: MIN - LOWER CERVICAL SPINE PINCH Ret: MOD - INCREASES NECK PAIN - NW RSB: MOD LSB: MOD - - L NECK PAIN - NW. LSB TIGHTER THAN RSB R Rot: MIN - MOD L Rot: MOD PATIENT DENIES INCREASED PAIN AFTER NECK ROM TESTING. Postural strength: GOOD MINUS Palpation: DECREASED CERVICAL MUSCLE TONE GEETHA/CERVICAL MUSCLE ATROPHY GEETHA. Balance/Special Test Scores Oswestry Neck Score: 13 Goals Goal 1:: DECREASE C/O NECK PAIN/SORENESS TO EASE ADL'S AND IMPROVE SLEEP FUNCTION Goal Time Frame: 4-6 Weeks Goal 2:: INCREASE PAINFREE CERVICAL ROM ALL PLANES Goal Time Frame: 4-6 Weeks Goal 3:: INCREASE NECK, SCAPULAR AND POSTURAL STRENGTH TO IMPROVE ADL, WORK AND RECREATIONAL FUNCTION. Goal Time Frame: 4-6 Weeks Goal 4:: INDEP HEP Goal Time Frame: 4-6 Weeks Rehabilitation Potential Physical Therapy Diagnosis: CERVICAL, SCAPULAR AND POSTURAL WEAKNESS. LIMITED CERVICAL ROM. DECREASED ADL TOLERANCE. Rehabilitation Potential: Good Anticipated Interventions Patient/Client Instruction: Educate patient on: Condition, Plan of Care and Risk Factors For the Purpose of:: To improve self management Therapeutic Exercise to Include: Strength training, Body mechanics, Postural training, Flexibilty training, Neuromotor development and Scapular Strength/Stabilization For the Purpose of:: To decrease pain, To increase ROM, To improve muscle performance and motor function, To improve ability to perform ADL's, To increase tolerance to activity/condition/position, To improve ability of physical actions for home/community/work/leisure and To improve self management Manual Therapy Techniques to Include: Trigger point massage and Soft tissue mobilization For the Purpose of:: To decrease pain, To improve nutrient delivery to tissue and To decrease soft tissue restriction Cryotherapy (ice pack, ice massage): Yes Thermo therapy (hot pack): Yes For the Purpose of:: To decrease pain, To decrease swelling/inflammation and To improve nutrient delivery to tissue Text: Thank you for the opportunity to evaluate your patient. For Medicare and Medicare HMO plans, please review the plan of care and approve it. It will need to be FAXED BACK to us at [phone] for Medicare purposes. For Medicare only, by signing this I certify the plan of care. Please let me know if there are questions or concerns regarding this plan of care. Physician Signature: Date:
--- NOTE | 2025-11-08 12:29 | HP.PTDCSUM_ITS ---
Discharge Summary D/C summary: It has been my pleasure to treat AUGIE SAENZ referred by Dr. Deven Girard MD, with the diagnosis of FRACTURE OF OCCIPITAL CONDYLE for a total of 9 visit(s). Discharge Date: 11/08/25 Please see the following information for a summary of their discharge status. Subjective Subjective: I FEEL LIKE I'VE TURNED A CORNER HIS PAST WEEK. PATIENT CONTINUES TO REPORT IMPROVEMENT. STATES HE STILL HASN'T REALLY PUSHED IT BUT HE DID HELP MOVE SOMEONE - A COUCH HERE AND THERE BUT NO [place]O'S- WAS FATIGUED BUT NOT PAINFUL. WAS GONE ABOUT 6-7 HOURS HELPING WITH THE MOVE. PATIENT STATES HE FEELS READY TO BE DISCHARGED TO CONTINUE ON HIS OWN NOW. Overall Improvement % Improvement: 87 Objective Objective/Function: PATIENT WAS SEEN TODAY FOR RE-ASSESSMENT OF PROGRESS TOWARD THE SET PT GOALS AND THE NEED FOR FURTHER PHYSICAL THERAPY VS READINESS FOR DISCHARGE. THIS PATIENT HAS RESPONDED VERY WELL TO THERAPY AND IS INDEP WITH A HEP. ALL GOALS HAVE BEEN MET AND HE IS APPROPRIATE FOR AND AGREEABLE TO DISCHARGE. 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 Dural Signs: NEGATIVE GEETHA UE'S. Cervical Mvmt Loss: Flex: NIL Pro: NIL Ext: NIL Ret: MIN RSB: MIN LSB: MIN - A LITTLE TIGHTER THAN RSB R Rot: NIL L Rot: NIL - A LITTLE TIGHER THAN R ROT PATIENT DENIES PAIN WITH CERVICAL ROM TESTING ALL PLANES. Goals Goal 1:: DECREASE C/O NECK PAIN/SORENESS TO EASE ADL'S AND IMPROVE SLEEP FUNCTION Goal Progress: Goal Met Goal 2:: INCREASE PAINFREE CERVICAL ROM ALL PLANES Goal Progress: Goal Met Goal 3:: INCREASE NECK, SCAPULAR AND POSTURAL STRENGTH TO IMPROVE ADL, WORK AND RECREATIONAL FUNCTION. Goal Progress: Goal Met Goal 4:: INDEP HEP Goal Progress: Goal Met Plan Plan: D/C D/C Information d/c sentence: If there are questions or concerns regarding this patient's physical therapy, please feel free to call me at [phone]. Thank you for the referral of this patient. Sincerely, Yane Yan, PT, Cert MDT Balance/Gait/Functional tests Balance/Special Test Scores Oswestry Neck Score: 2 Improvement % Improvement: 87
== END 2025-11-08 19:00 | disposition home or self-care (01) ==
LOC: PT 11:30
PROVIDERS: PCP Internal Medicine; Referring Provider Orthopaedic Surgery Orthopaedic Surgery of the Spine; Visit Provider Orthopaedic Surgery Orthopaedic Surgery of the Spine
DX: S02.113D Unspecified occipital condyle fracture, subsequent encounter for fracture with routine healing (principal)
CPT/HCPCS: 97110; 97161; 97530